=== PATIENT | male | born 1950 | race Caucasian/White ===

== ENCOUNTER 2018-07-29 15:40 | Inpatient (IN) | payer MEDICARE, MEDICAID ==
[~2018-07-29] VITALS: Ht 185.4 cm; Wt 113.9 kg
[~2018-07-29 15:40] MED LIST: DIGL; HYDR25TA PO; LIP40; MELO-106 PO; TAMS0.4C31 PO; WARF-53 PO
[2018-07-29 18:04] VITALS: BP 98/77
[2018-07-29] MEDS ORDERED: IPRATROPIUM/ALBUTEROL 0.5-3(2.5)MG/3ML NEB HHN PRN (19:00)
[2018-07-29 19:01] LABS: CLARITY URINE CLOUDY (CLEAR); COLOR URINE YELLOW (YELLOW); KETONES URINE NEGATIVE (NEGATIVE); LEUKOCYTE ESTERASE URINE 2+ (NEGATIVE); NITRITE URINE NEGATIVE (NEGATIVE); OCCULT BLOOD URINE 2+ (NEGATIVE); PH URINE 6.5 (4.5-8.0); PROTEIN URINE NEGATIVE (NEGATIVE); SPECIFIC GRAVITY URINE 1.017 (1.005-1.030)
[2018-07-29] MEDS: DIGOXIN 500MCG/2ML AMP IV SCH (19:30)
[2018-07-29 20:00] VITALS: BP 112/68
[2018-07-29] MEDS: IPRATROPIUM/ALBUTEROL 0.5-3(2.5)MG/3ML NEB HHN SCH (21:06)
[2018-07-29] MEDS ORDERED: AMIN30LI2 PO (22:15)
[2018-07-29] MEDS ORDERED: FINA5TAB11 PO (22:15)
[2018-07-29] MEDS ORDERED: ASCO100T12 PO (22:15)
[2018-07-29] MEDS ORDERED: HYDR25TA PO (22:15)
[2018-07-29] MEDS ORDERED: MULT-230 PO (22:15)
[2018-07-29] MEDS ORDERED: METO-539 PO (22:15)
[2018-07-29] MEDS ORDERED: LIDO700A30 TP (22:15)
[2018-07-29] MEDS ORDERED: ACET-2853 PO (22:15)
[2018-07-29] MEDS ORDERED: NA P230E RC (22:15)
[2018-07-29] MEDS ORDERED: MOM MT (22:15)
[2018-07-29] MEDS ORDERED: DOCU100T PO (22:15)
[2018-07-29] MEDS ORDERED: TRAM50TA3 PO (22:15)
[2018-07-29] MEDS ORDERED: ONDA4TAB5 PO (22:15)
[2018-07-29] MEDS ORDERED: BISA10SU8 RC (22:15)
[2018-07-29] MEDS ORDERED: ATOR40TA70 PO (22:15)
[2018-07-29] MEDS ORDERED: CYCL10TA7 PO (22:15)
[2018-07-29 22:40] LABS: PROTHROMBIN TIME 43.3 sec (9.1-11.1)
[2018-07-29 22:47] LABS: INR 4.4
[2018-07-29 22:52] LABS: CHLORIDE 100 mEq/L (98-107)
[2018-07-29 23:20] LABS: DIGOXIN < 0.1 ng/mL (0.9-2.0)
[2018-07-29] MEDS ORDERED: MEDICATION NOT ON FORMULARY EA (Finasteride 5 MG) PO SCH (23:45)
[2018-07-30] VITALS (9 sets, daily range): BP systolic 107–117; BP diastolic 68–74
[2018-07-30 00:13] LABS: BASOPHILS % 0.5 % (0.0-2.0); EOSINOPHILS % 2.2 % (0.0-5.0); HEMATOCRIT. 35.7 % (42.0-52.0); HEMOGLOBIN. 12.2 g/dL (14.0-18.0); MEAN CORPUSCULAR HEMOGLOBIN 29.7 pg (28.0-32.0); MEAN CORPUSCULAR VOLUME 86.7 fL (80.0-94.0); MONOCYTES % 7.7 % (2.0-8.0); NEUTROPHILS % 54.6 % (40.0-76.0); PLATELET 281 x1000/uL (130-400); RED BLOOD CELL COUNT 4.12 mill/uL (4.7-6.1)
[2018-07-30] MEDS: FINASTERIDE 5MG TABLET PO SCH ×2 (00:23→09:09)
[2018-07-30] MEDS: IPRATROPIUM/ALBUTEROL 0.5-3(2.5)MG/3ML NEB HHN SCH ×4 (01:28→21:03)
[2018-07-30] MEDS: CEFTRIAXONE 1 G PREMIX 50 ML IV SCH (01:35)
[2018-07-30] MEDS ORDERED: MEDICATION NOT ON FORMULARY EA (Metoprolol Tartrate 50 MG) PO SCH (09:00)
[2018-07-30] MEDS ORDERED: DILTIAZEM HCL 5MG/ML 5ML VIAL IV NR (09:00)
[2018-07-30] MEDS ORDERED: DIGOXIN 500MCG/2ML AMP IV SCH (09:00)
[2018-07-30] MEDS: METOPROLOL TARTRATE 50MG TABLET PO SCH ×2 (09:08→21:00)
[2018-07-30] MEDS: TAMSULOSIN HCL 0.4MG SR CAPSULE PO SCH (09:24)
[2018-07-30] MEDS ORDERED: MAGNESIUM/ALUMINUM HYDROXIDE/SIMETHICONE 30ML UDC PO PRN (11:00)
[2018-07-30] MEDS ORDERED: GUAIFENESIN 200MG/10ML SUGAR FREE UDC PO PRN (11:00)
[2018-07-30] MEDS ORDERED: ACETAMINOPHEN 650MG/20.3ML UDC GT PRN (11:00)
[2018-07-30] MEDS ORDERED: CLONIDINE 0.1MG TABLET PO PRN (11:00)
[2018-07-30] MEDS ORDERED: ONDANSETRON HCL 4MG/2ML INJ IV PRN (11:00)
[2018-07-30] MEDS ORDERED: IPRATROPIUM/ALBUTEROL 0.5-3(2.5)MG/3ML NEB INH PRN (11:00)
[2018-07-30] MEDS ORDERED: DIPHENHYDRAMINE 50MG/ML VIAL IV PRN (11:00)
[2018-07-30] MEDS ORDERED: ACETAMINOPHEN 650MG SUPP PR PRN (11:00)
[2018-07-30] MEDS ORDERED: SODIUM CHLORIDE 0.9% 1000ML BAG (SEPSIS BOLUS) IV ONE (11:00)
[2018-07-30] MEDS ORDERED: SODIUM CHLORIDE 0.9% 500 ML IV ONE (11:02)
[2018-07-30 11:30] LABS: INR 3.4; PROTHROMBIN TIME 33.5 sec (9.1-11.1)
[2018-07-30] MEDS: SODIUM CHLORIDE 0.9% INJ 3ML FLUSH IVF SCH ×2 (13:54→21:24)
[2018-07-30] MEDS ORDERED: GADOBENATE DIMEGLUMINE 529 MG/ML 10ML IV ONE (14:25)
[2018-07-30] MEDS ORDERED: PHYTONADIONE 10 MG/10 ML ORALSYR PO ONE (14:30)
[2018-07-30] MEDS ORDERED: DEXTROSE 50% WATER 50ML SYRINGE IV PRN (15:00)
[2018-07-30] MEDS ORDERED: PHYTONADIONE 10MG/ML AMP SUBCUT ONE (15:15)
[2018-07-30 16:38] LABS: BASOPHILS % 0.5 % (0.0-2.0); EOSINOPHILS % 1.8 % (0.0-5.0); HEMATOCRIT. 37.1 % (42.0-52.0); HEMOGLOBIN. 12.7 g/dL (14.0-18.0); LYMPHOCYTES % 29.2 % (20.0-50.0); MEAN CORPUSCULAR HEMOGLOBIN 30.1 pg (28.0-32.0); MEAN CORPUSCULAR VOLUME 87.8 fL (80.0-94.0); MONOCYTES % 8.5 % (2.0-8.0); PLATELET 276 x1000/uL (130-400); RED BLOOD CELL COUNT 4.23 mill/uL (4.7-6.1); RED CELL DISTRIBUTION WIDTH 14.1 % (11.6-14.6)
[2018-07-30 16:49] LABS: CHLORIDE 100 mEq/L (98-107)
[2018-07-30 16:59] LABS: CREATINE KINASE 151 IU/L (39-308)
[2018-07-30 17:01] LABS: CREATINE KINASE MB FRACTION 1.3 ng/mL (0.5-3.6)
[2018-07-30] MEDS: PHYTONADIONE 10MG/ML AMP SUBCUT SCH (17:12)
[2018-07-30] MEDS ORDERED: ENOXAPARIN 40MG/0.4ML SYR SUBCUT SCH (17:15)
[2018-07-30] MEDS: BLOOD SUGAR DIAGNOSTIC STRIP TEST SCH ×2 (17:20→21:24)
[2018-07-30] MEDS: INSULIN LISPRO 100 UNITS/ML SUBCUT SCH ×2 (17:50→21:00)
[2018-07-30] MEDS: DIGOXIN 500MCG/2ML AMP IV SCH (18:00)
[2018-07-30] MEDS ORDERED: VANCOMYCIN 1 G PREMIX 200 ML IV NR (18:00)
[2018-07-30] MEDS: PIPERACILLIN/TAZ 3.375G PREMIX 50 ML IV SCH (18:07)
[2018-07-30 18:39] LABS: CLARITY URINE TURBID (CLEAR); COLOR URINE DARK YELLOW (YELLOW); KETONES URINE TRACE (NEGATIVE); LEUKOCYTE ESTERASE URINE 1+ (NEGATIVE); NITRITE URINE NEGATIVE (NEGATIVE); OCCULT BLOOD URINE 3+ (NEGATIVE); PROTEIN URINE 1+ (NEGATIVE)
[2018-07-30 19:08] LABS: *AMPHETAMINES SCREEN URINE NEGATIVE (NEGATIVE); *BARBITURATES SCREEN URINE NEGATIVE (NEGATIVE); *BENZODIAZEPINES SCREEN URINE NEGATIVE (NEGATIVE); *COCAINE SCREEN URINE NEGATIVE (NEGATIVE); OPIATES URINE SCREEN NEGATIVE (NEGATIVE); PHENCYCLIDINE URINE SCREEN NEGATIVE (NEGATIVE)
[2018-07-30 19:09] LABS: CANNABINOID URINE SCREEN PRESUMTIVE POSITIVE (NEGATIVE)
[2018-07-30 19:15] LABS: METHADONE URINE SCREEN NEGATIVE (NEGATIVE)
[2018-07-30] MEDS: DOCUSATE SODIUM 100MG CAPSULE PO PRN (21:24)
[2018-07-31] VITALS (41 sets, daily range): BP systolic 93–150; BP diastolic 41–94
[2018-07-31] MEDS: IPRATROPIUM/ALBUTEROL 0.5-3(2.5)MG/3ML NEB HHN SCH ×2 (01:11→20:30)
[2018-07-31] MEDS: PIPERACILLIN/TAZ 3.375G PREMIX 50 ML IV SCH ×5 (01:12→23:20)
[2018-07-31 01:32] LABS: CREATINE KINASE 54 IU/L (39-308)
[2018-07-31 01:34] LABS: CREATINE KINASE MB FRACTION < 1.0 ng/mL (0.5-3.6)
[2018-07-31] MEDS: CEFTRIAXONE 1 G PREMIX 50 ML IV SCH (02:25)
[2018-07-31 03:12] LABS: INR 1.7; PROTHROMBIN TIME 17.3 sec (9.1-11.1)
[2018-07-31] MEDS: SODIUM CHLORIDE 0.9% INJ 3ML FLUSH IVF SCH (05:38)
[2018-07-31 07:19] LABS: BASOPHILS % 0.8 % (0.0-2.0); EOSINOPHILS % 2.9 % (0.0-5.0); HEMATOCRIT. 33.2 % (42.0-52.0); HEMOGLOBIN. 11.4 g/dL (14.0-18.0); LYMPHOCYTES % 32.8 % (20.0-50.0); MEAN CORPUSCULAR VOLUME 87.4 fL (80.0-94.0); MEAN PLATELET VOLUME 6.6 fl (7.4-10.4); MONOCYTES % 8.8 % (2.0-8.0); NEUTROPHILS % 54.7 % (40.0-76.0); PLATELET 263 x1000/uL (130-400); RED BLOOD CELL COUNT 3.79 mill/uL (4.7-6.1); RED CELL DISTRIBUTION WIDTH 14.3 % (11.6-14.6)
[2018-07-31 07:28] LABS: CHLORIDE 102 mEq/L (98-107)
[2018-07-31 07:33] LABS: INR 1.4; PARTIAL THROMBOPLASTIN TIME 34.6 sec (23.4-31.0); PROTHROMBIN TIME 14.1 sec (9.1-11.1)
[2018-07-31 07:35] LABS: LDL CHOLESTEROL 65 mg/dL (5-100)
[2018-07-31 07:36] LABS: HDL CHOLESTEROL 40 mg/dL (40-59)
[2018-07-31] MEDS: TAMSULOSIN HCL 0.4MG SR CAPSULE PO SCH (07:42)
[2018-07-31] MEDS: METOPROLOL TARTRATE 50MG TABLET PO SCH ×2 (07:42→21:06)
[2018-07-31] MEDS: FINASTERIDE 5MG TABLET PO SCH (07:43)
[2018-07-31] MEDS: INSULIN LISPRO 100 UNITS/ML SUBCUT SCH ×4 (07:45→21:00)
[2018-07-31] MEDS: BLOOD SUGAR DIAGNOSTIC STRIP TEST SCH ×4 (07:45→21:06)
[2018-07-31] MEDS: PHYTONADIONE 10MG/ML AMP SUBCUT SCH (08:34)
[2018-07-31] MEDS ORDERED: GELATIN SPONGE,ABSORBABLE 12-7MM SPONGE ONE (08:50)
[2018-07-31] MEDS ORDERED: LIDOCAINE HCL/EPINEPHRINE 1%-EPI 1:100,000 20 ML VIAL ONE (08:51)
[2018-07-31] MEDS ORDERED: NORMAL SALINE 0.9% 10 ML SYR ONE (08:51)
[2018-07-31] MEDS ORDERED: BACITRACIN 50,000 UNITS/VIAL ONE (08:51)
[2018-07-31] MEDS ORDERED: THROMBIN (BOVINE) 5000 UNITS/VIAL TOP ONE (08:51)
[2018-07-31] MEDS ORDERED: FENTANYL CITRATE/PF 50MCG/ML 2ML VIAL ONE (08:57)
[2018-07-31] MEDS ORDERED: ROCURONIUM BROMIDE 10MG/ML VIAL 5ML IV ONE (08:57)
[2018-07-31] MEDS ORDERED: MIDAZOLAM HCL 2 MG/2 ML VIAL ONE (08:58)
[2018-07-31] MEDS ORDERED: ONDANSETRON HCL 4MG/2ML INJ ONE (09:04)
[2018-07-31] MEDS ORDERED: ETOMIDATE 2MG/ML 10ML VIAL IV ONE (09:04)
[2018-07-31] MEDS ORDERED: CEFAZOLIN SODIUM 1000MG/VIAL ONE (09:37)
[2018-07-31] MEDS ORDERED: SODIUM CHLORIDE 0.9% 10ML VIAL ONE (09:37)
[2018-07-31] MEDS ORDERED: TRANEXAMIC ACID 1,000 MG in SODIUM CHLORIDE 0.9% 100 ML IV NR (09:45)
[2018-07-31] MEDS ORDERED: NEOSTIGMINE METHYLSULFATE 1MG/ML 10 ML VIAL ONE (10:40)
[2018-07-31] MEDS ORDERED: GLYCOPYRROLATE 0.2 MG/ML 2ML VIAL ONE (10:51)
[2018-07-31] MEDS ORDERED: HYDROMORPHONE HCL/PF 2MG/ML (OR) ONE (11:05)
[2018-07-31] MEDS ORDERED: MORPHINE SULFATE 4 MG/ML CPJ (NOT FOR IM USE) IV PRN (12:00)
[2018-07-31] MEDS ORDERED: HYDROCODONE/APAP 7.5/325MG 1 TAB TABLET PO PRN (12:00)
[2018-07-31] MEDS ORDERED: NICARDIPINE 100 MG in SODIUM CHLORIDE 0.9% 60 ML IV PRN (12:00)
[2018-07-31] MEDS: DEXT 5%/LACTATED RINGERS 1,000 ML IV SCH ×2 (12:38→17:29)
[2018-07-31] MEDS ORDERED: NITROPRUSSIDE 50 MG in SODIUM CHLORIDE 0.9% 250 ML IV PRN (12:45)
[2018-07-31] MEDS ORDERED: VANCOMYCIN 2,000 MG in SODIUM CHLORIDE 0.9% 500 ML IV NR (14:00)
[2018-07-31 15:52] LABS: INR 1.2; PROTHROMBIN TIME 12.3 sec (9.1-11.1)
[2018-07-31 16:36] LABS: HEPATITIS B SURFACE ANTIGEN NEGATIVE
[2018-07-31 17:06] LABS: HEPATITIS A AB IGM NEGATIVE (NEGATIVE)
[2018-07-31] MEDS: DIGOXIN 500MCG/2ML AMP IV SCH (17:28)
[2018-07-31] MEDS: ACETAMINOPHEN 325MG TABLET PO PRN (23:20)
[2018-08-01] VITALS (64 sets, daily range): BP systolic 18–151; BP diastolic 18–110
[2018-08-01] MEDS: DEXT 5%/LACTATED RINGERS 1,000 ML IV SCH ×3 (01:20→16:27)
[2018-08-01] MEDS: IPRATROPIUM/ALBUTEROL 0.5-3(2.5)MG/3ML NEB HHN SCH ×4 (02:19→20:30)
[2018-08-01] MEDS: ACETAMINOPHEN 325MG TABLET PO PRN ×2 (05:02→13:18)
[2018-08-01] MEDS: INSULIN LISPRO 100 UNITS/ML SUBCUT SCH ×4 (06:10→20:34)
[2018-08-01] MEDS: BLOOD SUGAR DIAGNOSTIC STRIP TEST SCH ×4 (06:10→20:34)
[2018-08-01] MEDS: PIPERACILLIN/TAZ 3.375G PREMIX 50 ML IV SCH ×3 (06:10→17:47)
[2018-08-01] MEDS: VANCOMYCIN 1,750 MG in DEXT 5% WATER 500 ML IV SCH (07:30)
[2018-08-01] MEDS ORDERED: VANCOMYCIN 1500MG in DEXTROSE 5% WATER 250ML IV SCH (08:00)
[2018-08-01] MEDS: PHYTONADIONE 10MG/ML AMP SUBCUT SCH (08:58)
[2018-08-01] MEDS: TAMSULOSIN HCL 0.4MG SR CAPSULE PO SCH (08:58)
[2018-08-01] MEDS: FINASTERIDE 5MG TABLET PO SCH (08:59)
[2018-08-01] MEDS: METOPROLOL TARTRATE 50MG TABLET PO SCH ×2 (08:59→20:31)
[2018-08-01 10:49] LABS: INR 1.2
[2018-08-01 10:55] LABS: BASOPHILS % 0.4 % (0.0-2.0); HEMATOCRIT. 31.2 % (42.0-52.0); HEMOGLOBIN. 10.6 g/dL (14.0-18.0); LYMPHOCYTES % 27.3 % (20.0-50.0); MEAN CORPUSCULAR HEMOGLOBIN 30.1 pg (28.0-32.0); MEAN CORPUSCULAR VOLUME 88.8 fL (80.0-94.0); MEAN PLATELET VOLUME 6.8 fl (7.4-10.4); MONOCYTES % 7.7 % (2.0-8.0); NEUTROPHILS % 61.6 % (40.0-76.0); PLATELET 242 x1000/uL (130-400); RED BLOOD CELL COUNT 3.52 mill/uL (4.7-6.1); RED CELL DISTRIBUTION WIDTH 13.8 % (11.6-14.6)
[2018-08-01 11:03] LABS: CHLORIDE 103 mEq/L (98-107)
[2018-08-01] MEDS: DOCUSATE SODIUM 100MG CAPSULE PO PRN (13:57)
[2018-08-01] MEDS: DIGOXIN 500MCG/2ML AMP IV SCH (17:48)
[2018-08-01] MEDS ORDERED: BISACODYL 10MG SUPP PR PRN (22:15)
[2018-08-02] VITALS: BP 121/73
[2018-08-02] MEDS: PIPERACILLIN/TAZ 3.375G PREMIX 50 ML IV SCH ×3 (00:05→12:46)
[2018-08-02] MEDS: IPRATROPIUM/ALBUTEROL 0.5-3(2.5)MG/3ML NEB HHN SCH ×3 (01:58→21:35)
[2018-08-02] MEDS: VANCOMYCIN 1,750 MG in DEXT 5% WATER 500 ML IV SCH (02:08)
[2018-08-02] MEDS: DEXT 5%/LACTATED RINGERS 1,000 ML IV SCH ×3 (02:12→22:55)
[2018-08-02 04:00] VITALS: BP 132/74
[2018-08-02] MEDS: BLOOD SUGAR DIAGNOSTIC STRIP TEST SCH ×4 (06:24→20:32)
[2018-08-02] MEDS: BISACODYL 5MG TABLET PO PRN (06:42)
[2018-08-02] MEDS: INSULIN LISPRO 100 UNITS/ML SUBCUT SCH ×4 (07:50→20:32)
[2018-08-02 08:00] VITALS: BP 134/78
[2018-08-02 08:18] LABS: HIV SCREEN 4G Non Reactive (Non Reactive)
[2018-08-02] MEDS: NA PHOS,M-B/NA PHOS,DI-BA ENEMA 118ML PR PRN ×2 (08:38→10:19)
[2018-08-02] MEDS: TAMSULOSIN HCL 0.4MG SR CAPSULE PO SCH (08:39)
[2018-08-02] MEDS: METOPROLOL TARTRATE 50MG TABLET PO SCH ×2 (08:39→20:28)
[2018-08-02] MEDS: FINASTERIDE 5MG TABLET PO SCH (08:39)
[2018-08-02] MEDS ORDERED: LIDOCAINE HCL 1% 20ML VIAL (Pyxis) INJ ONE (09:03)
[2018-08-02 12:02] VITALS: BP 142/76
[2018-08-02] MEDS ORDERED: LACTULOSE 20G/30ML UDC PO NR ×2 (15:00→21:39)
[2018-08-02] MEDS: ACETAMINOPHEN 325MG TABLET PO PRN (15:52)
[2018-08-02 16:00] VITALS: BP 109/75
[2018-08-02] MEDS: VANCOMYCIN 1500MG in DEXTROSE 5% WATER 250ML IV SCH (17:51)
[2018-08-02] MEDS: LEVOFLOXACIN 250MG TABLET PO SCH (17:52)
[2018-08-02] MEDS: DIGOXIN 500MCG/2ML AMP IV SCH (17:55)
[2018-08-02 20:00] VITALS: BP 115/80
[2018-08-02] MEDS: METRONIDAZOLE 500MG TABLET PO SCH (22:56)
[2018-08-03] VITALS: BP 106/58
[2018-08-03] MEDS: IPRATROPIUM/ALBUTEROL 0.5-3(2.5)MG/3ML NEB HHN SCH ×4 (02:52→22:00)
[2018-08-03 04:00] VITALS: BP 125/69
[2018-08-03] MEDS: VANCOMYCIN 1500MG in DEXTROSE 5% WATER 250ML IV SCH ×2 (04:40→16:57)
[2018-08-03] MEDS: METRONIDAZOLE 500MG TABLET PO SCH ×3 (06:39→21:34)
[2018-08-03] MEDS: BLOOD SUGAR DIAGNOSTIC STRIP TEST SCH ×4 (06:46→21:35)
[2018-08-03] MEDS: INSULIN LISPRO 100 UNITS/ML SUBCUT SCH ×4 (07:50→21:00)
[2018-08-03 08:00] VITALS: BP 120/74
[2018-08-03] MEDS: METOPROLOL TARTRATE 50MG TABLET PO SCH ×2 (08:50→21:34)
[2018-08-03] MEDS: DEXT 5%/LACTATED RINGERS 1,000 ML IV SCH ×2 (08:50→18:32)
[2018-08-03] MEDS: FINASTERIDE 5MG TABLET PO SCH (08:51)
[2018-08-03] MEDS: TAMSULOSIN HCL 0.4MG SR CAPSULE PO SCH (08:51)
[2018-08-03] MEDS: LEVOFLOXACIN 250MG TABLET PO SCH (11:05)
[2018-08-03 12:00] VITALS: BP 107/79
[2018-08-03] MEDS ORDERED: NA PHOS,M-B/NA PHOS,DI-BA ENEMA 118ML PR NR (12:30)
[2018-08-03 16:00] VITALS: BP 127/73
[2018-08-03] MEDS: DIGOXIN 500MCG/2ML AMP IV SCH (18:33)
[2018-08-03 20:00] VITALS: BP 115/82
[2018-08-03] MEDS: ACETAMINOPHEN 325MG TABLET PO PRN (21:34)
[2018-08-04] VITALS: BP 108/72
[2018-08-04] MEDS: IPRATROPIUM/ALBUTEROL 0.5-3(2.5)MG/3ML NEB HHN SCH ×3 (01:32→13:26)
[2018-08-04 04:00] VITALS: BP 132/99
[2018-08-04] MEDS: NA PHOS,M-B/NA PHOS,DI-BA ENEMA 118ML PR PRN (07:04)
[2018-08-04] MEDS: DEXT 5%/LACTATED RINGERS 1,000 ML IV SCH ×2 (07:05→13:40)
[2018-08-04] MEDS: BLOOD SUGAR DIAGNOSTIC STRIP TEST SCH ×2 (07:20→12:57)
[2018-08-04] MEDS: INSULIN LISPRO 100 UNITS/ML SUBCUT SCH ×2 (07:50→12:50)
[2018-08-04 08:00] VITALS: BP 132/81
[2018-08-04] MEDS: TAMSULOSIN HCL 0.4MG SR CAPSULE PO SCH (09:37)
[2018-08-04] MEDS: METOPROLOL TARTRATE 50MG TABLET PO SCH (09:38)
[2018-08-04] MEDS: BISACODYL 5MG TABLET PO PRN (09:38)
[2018-08-04] MEDS: FINASTERIDE 5MG TABLET PO SCH (09:38)
[2018-08-04] MEDS: LEVOFLOXACIN 250MG TABLET PO SCH (11:29)
[2018-08-04 12:00] VITALS: BP 116/69
[2018-08-04] MEDS: METRONIDAZOLE 500MG TABLET PO SCH (13:40)
[2018-08-04 14:42] VITALS: BP 132/81
[2018-08-04] MEDS ORDERED: VANCOMYCIN 1250MG in DEXTROSE 5% WATER 250ML IV SCH (16:00)
== END 2018-08-04 15:46 | DRG 29 ==
LOC: ER 15:40 → 6WST 15:45 → MICUSO 07-31 10:09 → 6EST 08-01 18:55
PROVIDERS: ADMIT Family Medicine; ATTEND Family Medicine
PROC: 30233K1 Transfusion of Nonautologous Frozen Plasma into Peripheral Vein, Percutaneous Approach (ICD-10-PCS; 2018-07-30)
PROC: 009U0ZZ Drainage of Spinal Canal, Open Approach (ICD-10-PCS; principal; 2018-07-31)
PROC: 4A11X4G Monitoring of Peripheral Nervous Electrical Activity, Intraoperative, External Approach (ICD-10-PCS; 2018-07-31)
PROC: 01NB0ZZ Release Lumbar Nerve, Open Approach (ICD-10-PCS; 2018-07-31)
PROC: 02HV33Z Insertion of Infusion Device into Superior Vena Cava, Percutaneous Approach (ICD-10-PCS; 2018-08-02)
PROC: B548ZZA Ultrasonography of Superior Vena Cava, Guidance (ICD-10-PCS; 2018-08-02)
PROC: B5181ZA Fluoroscopy of Superior Vena Cava using Low Osmolar Contrast, Guidance (ICD-10-PCS; 2018-08-02)
DX: G06.2 Extradural and subdural abscess, unspecified (principal); S32.059A Unspecified fracture of fifth lumbar vertebra, initial encounter for closed fracture; N39.0 Urinary tract infection, site not specified; D68.59 Other primary thrombophilia; M46.27 Osteomyelitis of vertebra, lumbosacral region; G82.20 Paraplegia, unspecified; L03.116 Cellulitis of left lower limb; L03.115 Cellulitis of right lower limb; E44.0 Moderate protein-calorie malnutrition; E11.51 Type 2 diabetes mellitus with diabetic peripheral angiopathy without gangrene; E11.65 Type 2 diabetes mellitus with hyperglycemia; I48.2 Chronic atrial fibrillation; E78.5 Hyperlipidemia, unspecified; I87.2 Venous insufficiency (chronic) (peripheral); M48.061 Spinal stenosis, lumbar region without neurogenic claudication; M46.49 Discitis, unspecified, multiple sites in spine; E66.9 Obesity, unspecified; R32 Unspecified urinary incontinence; D64.9 Anemia, unspecified; E11.621 Type 2 diabetes mellitus with foot ulcer; E11.69 Type 2 diabetes mellitus with other specified complication; Z96.642 Presence of left artificial hip joint; L97.519 Non-pressure chronic ulcer of other part of right foot with unspecified severity; M19.90 Unspecified osteoarthritis, unspecified site; M48.04 Spinal stenosis, thoracic region; N40.0 Benign prostatic hyperplasia without lower urinary tract symptoms; R26.2 Difficulty in walking, not elsewhere classified; L57.0 Actinic keratosis; M47.26 Other spondylosis with radiculopathy, lumbar region; X58.XXXA Exposure to other specified factors, initial encounter; Y93.89 Activity, other specified; Z79.01 Long term (current) use of anticoagulants; Z88.2 Allergy status to sulfonamides; Z90.49 Acquired absence of other specified parts of digestive tract; Y92.89 Other specified places as the place of occurrence of the external cause; Y99.8 Other external cause status
CPT/HCPCS: 36415; 36569; 71045; 72100; 72141; 72146; 72148; 72158; 76937; 77001; 80048; 80061; 80162; 80202; 80305; 82550; 82553; 82962; 83605; 84145; 84153; 84484; 86705; 86709; 86803; 86850; 86900; 86927; 87070; 87075; 87340; 87389; 88304; 88311; 93005; 93306; 93923; 93970; 94640; 95863; 95925; 95926; 97110; 97116; 97162; 97166; 97530; 97535; 99285; A9577; C1725; J0690; J0696; J1160; J1170; J2250; J2405; J2543; J2710; J3010; J3370; J3430; J3490; J7040; J7050; J7060; J7121; J7620; L3908; P9017; A4315; G0103

== ENCOUNTER 2018-08-04 15:59 | Inpatient (IN) | payer MEDICARE, MEDICAID ==
[~2018-08-04] VITALS: Ht 185.4 cm; Wt 104.3 kg
[~2018-08-04 15:59] MED LIST changes: +ACET-2853 PO; +AMIN30LI2 PO; +ASCO100T12 PO; +ATOR40TA70 PO; +BISA10SU8 RC; +CYCL10TA7 PO; -DIGL; +DOCU100T PO; +FINA5TAB11 PO; +LIDO700A30 TP; +METO-539 PO; +MOM MT; +MULT-230 PO; +NA P230E RC; +ONDA4TAB5 PO; +TRAM50TA3 PO
[2018-08-04 16:39] VITALS: BP 125/80
[2018-08-04 16:54] VITALS: BP 125/80
[2018-08-04] MEDS ORDERED: IPRATROPIUM/ALBUTEROL 0.5-3(2.5)MG/3ML NEB HHN PRN (17:45)
[2018-08-04] MEDS ORDERED: MEDICATION NOT ON FORMULARY EA (Finasteride 5 MG) PO SCH (19:00)
[2018-08-04 20:00] VITALS: BP 115/69
[2018-08-04] MEDS ORDERED: FINASTERIDE 5MG TABLET PO SCH (20:00)
[2018-08-04] MEDS: VANCOMYCIN 1250MG in DEXTROSE 5% WATER 250ML IV SCH (20:37)
[2018-08-04] MEDS: ATORVASTATIN CALCIUM 40MG TABLET PO SCH (20:37)
[2018-08-04] MEDS ORDERED: BISACODYL 10MG SUPP PR PRN (21:30)
[2018-08-04] MEDS ORDERED: ACETAMINOPHEN 325MG TABLET PO PRN (21:30)
[2018-08-04] MEDS ORDERED: NA PHOS,M-B/NA PHOS,DI-BA ENEMA 118ML PR PRN (21:30)
[2018-08-04] MEDS ORDERED: HYDROCODONE/ACETAMINOPHEN 5/325MG TABLET PO PRN (21:30)
[2018-08-04] MEDS ORDERED: BISACODYL 5MG TABLET PO PRN (21:30)
[2018-08-04] MEDS: METRONIDAZOLE 500MG TABLET PO SCH (21:40)
[2018-08-04] MEDS ORDERED: METRONIDAZOLE 500MG TABLET PO SCH (22:00)
[2018-08-04] MEDS ORDERED: MAGNESIUM CITRATE 300ML SOLUTION PO NR (23:00)
[2018-08-05] MEDS: METRONIDAZOLE 500MG TABLET PO SCH ×3 (05:38→21:23)
[2018-08-05 06:18] LABS: BASOPHILS % 0.5 % (0.0-2.0); HEMATOCRIT. 30.5 % (42.0-52.0); HEMOGLOBIN. 10.4 g/dL (14.0-18.0); LYMPHOCYTES % 26.9 % (20.0-50.0); MEAN CORPUSCULAR HEMOGLOBIN 29.9 pg (28.0-32.0); MEAN CORPUSCULAR VOLUME 87.8 fL (80.0-94.0); MEAN PLATELET VOLUME 6.6 fl (7.4-10.4); MONOCYTES % 8.8 % (2.0-8.0); NEUTROPHILS % 59.8 % (40.0-76.0); PLATELET 309 x1000/uL (130-400); RED BLOOD CELL COUNT 3.47 mill/uL (4.7-6.1); RED CELL DISTRIBUTION WIDTH 14.4 % (11.6-14.6)
[2018-08-05 06:48] LABS: CHLORIDE 103 mEq/L (98-107)
[2018-08-05 08:27] VITALS: BP 122/59
[2018-08-05] MEDS: TAMSULOSIN HCL 0.4MG SR CAPSULE PO SCH (08:29)
[2018-08-05] MEDS: FINASTERIDE 5MG TABLET PO SCH (08:29)
[2018-08-05] MEDS: VANCOMYCIN 1250MG in DEXTROSE 5% WATER 250ML IV SCH ×2 (08:29→21:23)
[2018-08-05] MEDS ORDERED: TAMSULOSIN HCL 0.4MG SR CAPSULE PO SCH (09:00)
[2018-08-05] MEDS: LEVOFLOXACIN 250MG TABLET PO SCH (11:17)
[2018-08-05] MEDS ORDERED: LACTULOSE 20G/30ML UDC PO NR (16:00)
[2018-08-05] MEDS: SODIUM CHLORIDE 0.9% 1,000 ML IV SCH (16:09)
[2018-08-05] MEDS ORDERED: HYDROCODONE/ACETAMINOPHEN 5/325MG TABLET PO PRN (16:15)
[2018-08-05] MEDS: DOCUSATE SODIUM 100MG CAPSULE PO SCH (17:21)
[2018-08-05 20:00] VITALS: BP 121/85
[2018-08-05] MEDS: ATORVASTATIN CALCIUM 40MG TABLET PO SCH (21:23)
[2018-08-06] MEDS: SODIUM CHLORIDE 0.9% 1,000 ML IV SCH ×2 (05:28→20:26)
[2018-08-06] MEDS: METRONIDAZOLE 500MG TABLET PO SCH ×3 (05:28→21:46)
[2018-08-06] MEDS ORDERED: SIMETHICONE 80MG TABLET CHEW PO PRN (07:15)
[2018-08-06 08:16] VITALS: BP 135/84
[2018-08-06] MEDS: DOCUSATE SODIUM 100MG CAPSULE PO SCH ×2 (09:00→17:00)
[2018-08-06] MEDS: VANCOMYCIN 1250MG in DEXTROSE 5% WATER 250ML IV SCH ×2 (09:42→20:25)
[2018-08-06] MEDS: TAMSULOSIN HCL 0.4MG SR CAPSULE PO SCH (09:44)
[2018-08-06] MEDS: FINASTERIDE 5MG TABLET PO SCH (09:44)
[2018-08-06] MEDS: LEVOFLOXACIN 250MG TABLET PO SCH (12:37)
[2018-08-06 20:00] VITALS: BP 115/78
[2018-08-06] MEDS: ATORVASTATIN CALCIUM 40MG TABLET PO SCH (21:46)
[2018-08-07] MEDS: METRONIDAZOLE 500MG TABLET PO SCH ×2 (05:41→17:41)
[2018-08-07] MEDS: VANCOMYCIN 1250MG in DEXTROSE 5% WATER 250ML IV SCH (08:00)
[2018-08-07 08:26] VITALS: BP 140/90
[2018-08-07] MEDS: DOCUSATE SODIUM 100MG CAPSULE PO SCH ×2 (09:00→17:00)
[2018-08-07] MEDS: SODIUM CHLORIDE 0.9% 1,000 ML IV SCH ×3 (09:31→20:14)
[2018-08-07] MEDS: TAMSULOSIN HCL 0.4MG SR CAPSULE PO SCH (09:35)
[2018-08-07] MEDS: FINASTERIDE 5MG TABLET PO SCH (09:35)
[2018-08-07 13:35] LABS: CLARITY URINE TURBID (CLEAR); COLOR URINE YELLOW (YELLOW); KETONES URINE NEGATIVE (NEGATIVE); LEUKOCYTE ESTERASE URINE 2+ (NEGATIVE); NITRITE URINE NEGATIVE (NEGATIVE); OCCULT BLOOD URINE TRACE (NEGATIVE); PROTEIN URINE TRACE (NEGATIVE); SPECIFIC GRAVITY URINE 1.004 (1.005-1.030); UROBILINOGEN URINE 0.2 E.U./dL (0.2-1.0)
[2018-08-07 15:08] LABS: BASOPHILS % 0.3 % (0.0-2.0); EOSINOPHILS % 3.2 % (0.0-5.0); HEMATOCRIT. 29.1 % (42.0-52.0); HEMOGLOBIN. 9.9 g/dL (14.0-18.0); LYMPHOCYTES % 19.1 % (20.0-50.0); MEAN CORPUSCULAR HEMOGLOBIN 30.1 pg (28.0-32.0); MEAN CORPUSCULAR VOLUME 88.1 fL (80.0-94.0); MEAN PLATELET VOLUME 6.3 fl (7.4-10.4); MONOCYTES % 6.5 % (2.0-8.0); NEUTROPHILS % 70.9 % (40.0-76.0); PLATELET 292 x1000/uL (130-400); RED CELL DISTRIBUTION WIDTH 14.6 % (11.6-14.6)
[2018-08-07 15:16] LABS: INR 1.1; PROTHROMBIN TIME 11.4 sec (9.1-11.1)
[2018-08-07 18:25] LABS: BASOPHILS % 0.4 % (0.0-2.0); EOSINOPHILS % 2.6 % (0.0-5.0); HEMATOCRIT. 30.2 % (42.0-52.0); MEAN CORPUSCULAR HEMOGLOBIN 29.3 pg (28.0-32.0); MEAN CORPUSCULAR VOLUME 88.2 fL (80.0-94.0); MEAN PLATELET VOLUME 6.6 fl (7.4-10.4); MONOCYTES % 7.5 % (2.0-8.0); NEUTROPHILS % 69.5 % (40.0-76.0); PLATELET 306 x1000/uL (130-400); RED BLOOD CELL COUNT 3.42 mill/uL (4.7-6.1); RED CELL DISTRIBUTION WIDTH 14.3 % (11.6-14.6)
[2018-08-07 18:32] LABS: PHOSPHORUS 3.6 mg/dL (2.5-4.9)
[2018-08-07 20:00] VITALS: BP 133/93
[2018-08-07] MEDS: ATORVASTATIN CALCIUM 40MG TABLET PO SCH (21:43)
[2018-08-08] MEDS: SODIUM CHLORIDE 0.9% 1,000 ML IV SCH (05:08)
[2018-08-08] MEDS: METRONIDAZOLE 500MG TABLET PO SCH (05:13)
[2018-08-08 07:14] LABS: BASOPHILS % 0.3 % (0.0-2.0); EOSINOPHILS % 2.8 % (0.0-5.0); HEMATOCRIT. 28.9 % (42.0-52.0); HEMOGLOBIN. 9.8 g/dL (14.0-18.0); LYMPHOCYTES % 20.6 % (20.0-50.0); MEAN CORPUSCULAR HEMOGLOBIN 29.7 pg (28.0-32.0); MEAN CORPUSCULAR VOLUME 87.6 fL (80.0-94.0); MEAN PLATELET VOLUME 6.5 fl (7.4-10.4); MONOCYTES % 7.7 % (2.0-8.0); NEUTROPHILS % 68.6 % (40.0-76.0); PLATELET 312 x1000/uL (130-400); RED CELL DISTRIBUTION WIDTH 14.5 % (11.6-14.6)
[2018-08-08 07:51] LABS: CHLORIDE 100 mEq/L (98-107)
[2018-08-08 08:00] VITALS: BP 138/87
[2018-08-08] MEDS: TAMSULOSIN HCL 0.4MG SR CAPSULE PO SCH (08:52)
[2018-08-08] MEDS: DOCUSATE SODIUM 100MG CAPSULE PO SCH (08:52)
[2018-08-08] MEDS: FINASTERIDE 5MG TABLET PO SCH (08:52)
[2018-08-08 09:21] VITALS: BP 138/87
[2018-08-08] MEDS ORDERED: LEVOFLOXACIN 500MG TABLET PO SCH (11:00)
[2018-08-08] MEDS ORDERED: LEVOFLOXACIN 250MG TABLET PO SCH (11:00)
== END 2018-08-08 10:29 | disposition short-term general hospital (02) | DRG 95 ==
PROVIDERS: ADMIT Psychiatry & Neurology Neurology; ATTEND Family Medicine
DX: G06.1 Intraspinal abscess and granuloma (principal); L03.115 Cellulitis of right lower limb; N17.9 Acute kidney failure, unspecified; D68.59 Other primary thrombophilia; N39.0 Urinary tract infection, site not specified; M46.27 Osteomyelitis of vertebra, lumbosacral region; L03.116 Cellulitis of left lower limb; I48.2 Chronic atrial fibrillation; E11.65 Type 2 diabetes mellitus with hyperglycemia; I87.2 Venous insufficiency (chronic) (peripheral); R32 Unspecified urinary incontinence; R15.9 Full incontinence of feces; E78.5 Hyperlipidemia, unspecified; R53.1 Weakness; E11.51 Type 2 diabetes mellitus with diabetic peripheral angiopathy without gangrene; N40.1 Benign prostatic hyperplasia with lower urinary tract symptoms; R33.8 Other retention of urine; E11.69 Type 2 diabetes mellitus with other specified complication; Z96.642 Presence of left artificial hip joint; E66.9 Obesity, unspecified; M19.90 Unspecified osteoarthritis, unspecified site; M46.47 Discitis, unspecified, lumbosacral region; I10 Essential (primary) hypertension; M48.061 Spinal stenosis, lumbar region without neurogenic claudication; M48.05 Spinal stenosis, thoracolumbar region; E11.621 Type 2 diabetes mellitus with foot ulcer; L97.519 Non-pressure chronic ulcer of other part of right foot with unspecified severity; Z79.01 Long term (current) use of anticoagulants; Z90.49 Acquired absence of other specified parts of digestive tract; Z88.2 Allergy status to sulfonamides; Z79.899 Other long term (current) drug therapy; Z68.30 Body mass index [BMI] 30.0-30.9, adult
CPT/HCPCS: 36415; 71045; 74018; 76770; 80048; 80202; 82040; 82570; 83735; 83935; 84100; 84156; 84300; 93970; 97110; 97162; 97166; 97530; 97535; A6261; J3370; J7030; J7040; J7060

== ENCOUNTER 2018-08-08 10:40 | Inpatient (IN) | payer MEDICARE, MEDICAID ==
[~2018-08-08] VITALS: Ht 185.4 cm; Wt 104.3 kg
[2018-08-08 10:00] VITALS: BP 117/84
[2018-08-08 10:40] VITALS: BP 117/84
[2018-08-08] MEDS: SODIUM CHLORIDE 0.9% 1,000 ML IV SCH (15:49)
[2018-08-08 16:00] VITALS: BP 129/90
[2018-08-08] MEDS ORDERED: MEDICATION NOT ON FORMULARY EA (Finasteride 5 MG) PO SCH (16:30)
[2018-08-08 17:24] VITALS: BP 114/84
[2018-08-08 17:35] VITALS: BP 109/71
[2018-08-08 20:00] VITALS: BP 135/87
[2018-08-08] MEDS: TAMSULOSIN HCL 0.4MG SR CAPSULE PO SCH (20:22)
[2018-08-09] VITALS (16 sets, daily range): BP systolic 121–148; BP diastolic 81–105
[2018-08-09] MEDS: SODIUM CHLORIDE 0.9% 1,000 ML IV SCH (01:08)
[2018-08-09] MEDS: METRONIDAZOLE 500MG TABLET PO SCH ×3 (06:14→21:10)
[2018-08-09] MEDS ORDERED: FENTANYL CITRATE/PF 50MCG/ML 2ML VIAL ONE (07:29)
[2018-08-09] MEDS ORDERED: LIDOCAINE HCL 1% 20ML VIAL (Pyxis) INJ ONE (07:33)
[2018-08-09] MEDS ORDERED: SODIUM BICARBONATE 4% (2.4MEQ) 5ML VIAL IV ONE (07:34)
[2018-08-09] MEDS ORDERED: FENTANYL CITRATE/PF 50MCG/ML 2ML VIAL IV NR (08:30)
[2018-08-09] MEDS: LEVOFLOXACIN 500MG TABLET PO SCH (10:14)
[2018-08-09] MEDS: TAMSULOSIN HCL 0.4MG SR CAPSULE PO SCH (10:14)
[2018-08-09] MEDS: FINASTERIDE 5MG TABLET PO SCH (10:14)
[2018-08-09] MEDS: DOXYCYCLINE 100 MG in DEXT 5% WATER 100 ML IV SCH ×2 (12:10→23:01)
[2018-08-09] MEDS ORDERED: METHYLPREDNISOLONE SOD SUCC 125 MG/2 ML VIAL IV NR (14:15)
[2018-08-09 15:21] LABS: HEMATOCRIT 32.3 % (42.0-52.0); HEMOGLOBIN 11.1 g/dL (14.0-18.0)
[2018-08-09 15:51] LABS: INR 1.2; PROTHROMBIN TIME 11.7 sec (9.1-11.1)
[2018-08-09 15:57] LABS: CHLORIDE 103 mEq/L (98-107)
[2018-08-09 18:01] LABS: BASOPHILS % 0.5 % (0.0-2.0); EOSINOPHILS % 2.1 % (0.0-5.0); HEMATOCRIT. 27.4 % (42.0-52.0); HEMOGLOBIN. 9.4 g/dL (14.0-18.0); LYMPHOCYTES % 20.6 % (20.0-50.0); MEAN CORPUSCULAR VOLUME 87.2 fL (80.0-94.0); MEAN PLATELET VOLUME 6.7 fl (7.4-10.4); MONOCYTES % 7.8 % (2.0-8.0); PLATELET 317 x1000/uL (130-400); RED BLOOD CELL COUNT 3.15 mill/uL (4.7-6.1); RED CELL DISTRIBUTION WIDTH 14.4 % (11.6-14.6)
[2018-08-10] VITALS: BP 137/94
[2018-08-10 04:00] VITALS: BP 136/102
[2018-08-10] MEDS: METRONIDAZOLE 500MG TABLET PO SCH ×3 (05:29→22:00)
[2018-08-10] MEDS: SODIUM CHLORIDE 0.9% 1,000 ML IV SCH ×2 (05:35→17:30)
[2018-08-10 07:47] LABS: BASOPHILS % 0.2 % (0.0-2.0); HEMOGLOBIN. 10.4 g/dL (14.0-18.0); LYMPHOCYTES % 16.2 % (20.0-50.0); MEAN CORPUSCULAR HEMOGLOBIN 29.8 pg (28.0-32.0); MEAN CORPUSCULAR VOLUME 89.1 fL (80.0-94.0); MEAN PLATELET VOLUME 6.6 fl (7.4-10.4); MONOCYTES % 4.5 % (2.0-8.0); NEUTROPHILS % 79.1 % (40.0-76.0); PLATELET 360 x1000/uL (130-400); RED BLOOD CELL COUNT 3.48 mill/uL (4.7-6.1); RED CELL DISTRIBUTION WIDTH 14.8 % (11.6-14.6)
[2018-08-10 07:53] LABS: CHLORIDE 105 mEq/L (98-107)
[2018-08-10 08:00] VITALS: BP 136/98
[2018-08-10 08:08] LABS: PHOSPHORUS 5.5 mg/dL (2.5-4.9)
[2018-08-10] MEDS: FINASTERIDE 5MG TABLET PO SCH (09:09)
[2018-08-10] MEDS: TAMSULOSIN HCL 0.4MG SR CAPSULE PO SCH (09:09)
[2018-08-10] MEDS: DOXYCYCLINE 100 MG in DEXT 5% WATER 100 ML IV SCH ×2 (11:02→22:00)
[2018-08-10 11:57] VITALS: BP 107/74
[2018-08-10] MEDS ORDERED: METHYLPREDNISOLONE SOD SUCC 125 MG/2 ML VIAL IV NR (13:45)
[2018-08-10 16:28] VITALS: BP 137/84
[2018-08-10 20:00] VITALS: BP 133/83
[2018-08-10] MEDS ORDERED: BISACODYL 10MG SUPP PR PRN (21:00)
[2018-08-10] MEDS ORDERED: BISACODYL 5MG TABLET PO PRN (21:00)
[2018-08-10] MEDS ORDERED: WARFARIN SODIUM 5MG TABLET PO NR (22:00)
[2018-08-10] MEDS: DOCUSATE SODIUM 250MG CAPSULE PO SCH (22:00)
[2018-08-11] VITALS: BP 136/90
[2018-08-11 04:00] VITALS: BP 128/83
[2018-08-11] MEDS: METRONIDAZOLE 500MG TABLET PO SCH ×3 (06:24→20:59)
[2018-08-11 08:00] VITALS: BP 144/85
[2018-08-11] MEDS: DOCUSATE SODIUM 250MG CAPSULE PO SCH (09:16)
[2018-08-11] MEDS: SODIUM CHLORIDE 0.9% 1,000 ML IV SCH ×3 (09:16→20:59)
[2018-08-11] MEDS: TAMSULOSIN HCL 0.4MG SR CAPSULE PO SCH (09:17)
[2018-08-11] MEDS: FINASTERIDE 5MG TABLET PO SCH (09:17)
[2018-08-11 09:58] LABS: BASOPHILS % 0.2 % (0.0-2.0); HEMATOCRIT. 31.2 % (42.0-52.0); HEMOGLOBIN. 10.5 g/dL (14.0-18.0); LYMPHOCYTES % 14.9 % (20.0-50.0); MEAN CORPUSCULAR HEMOGLOBIN 29.5 pg (28.0-32.0); MEAN CORPUSCULAR VOLUME 87.8 fL (80.0-94.0); MEAN PLATELET VOLUME 6.3 fl (7.4-10.4); MONOCYTES % 5.9 % (2.0-8.0); PLATELET 438 x1000/uL (130-400); RED BLOOD CELL COUNT 3.56 mill/uL (4.7-6.1); RED CELL DISTRIBUTION WIDTH 14.9 % (11.6-14.6)
[2018-08-11 10:01] LABS: INR 1.1; PROTHROMBIN TIME 11.3 sec (9.1-11.1)
[2018-08-11 10:14] LABS: CHLORIDE 104 mEq/L (98-107)
[2018-08-11 10:30] LABS: PHOSPHORUS 5.7 mg/dL (2.5-4.9)
[2018-08-11] MEDS ORDERED: METHYLPREDNISOLONE SOD SUCC 125 MG/2 ML VIAL IV NR (11:00)
[2018-08-11 12:00] VITALS: BP 142/94
[2018-08-11] MEDS: LEVOFLOXACIN 500MG TABLET PO SCH (12:01)
[2018-08-11] MEDS: DOXYCYCLINE 100 MG in DEXT 5% WATER 100 ML IV SCH (12:01)
[2018-08-11 15:47] LABS: CLARITY URINE CLOUDY (CLEAR); COLOR URINE YELLOW (YELLOW); KETONES URINE NEGATIVE (NEGATIVE); LEUKOCYTE ESTERASE URINE 2+ (NEGATIVE); NITRITE URINE NEGATIVE (NEGATIVE); OCCULT BLOOD URINE TRACE (NEGATIVE); PROTEIN URINE NEGATIVE (NEGATIVE); SPECIFIC GRAVITY URINE 1.009 (1.005-1.030); UROBILINOGEN URINE 0.2 E.U./dL (0.2-1.0)
[2018-08-11 16:00] VITALS: BP 128/81
[2018-08-11] MEDS ORDERED: WARFARIN SODIUM 5MG TABLET PO SCH (18:00)
[2018-08-11 20:00] VITALS: BP 122/90
[2018-08-11] MEDS: DOXYCYCLINE HYCLATE 100MG CAPSULE PO SCH (20:58)
[2018-08-12] VITALS: BP 126/67
[2018-08-12 04:00] VITALS: BP 124/79
[2018-08-12] MEDS: METRONIDAZOLE 500MG TABLET PO SCH ×2 (06:21→13:25)
[2018-08-12 07:37] LABS: BASOPHILS % 0.1 % (0.0-2.0); EOSINOPHILS % 0.1 % (0.0-5.0); HEMATOCRIT. 27.7 % (42.0-52.0); HEMOGLOBIN. 9.6 g/dL (14.0-18.0); LYMPHOCYTES % 22.3 % (20.0-50.0); MEAN CORPUSCULAR HEMOGLOBIN 30.4 pg (28.0-32.0); MEAN CORPUSCULAR VOLUME 87.7 fL (80.0-94.0); MEAN PLATELET VOLUME 6.4 fl (7.4-10.4); MONOCYTES % 7.1 % (2.0-8.0); NEUTROPHILS % 70.4 % (40.0-76.0); PLATELET 382 x1000/uL (130-400); RED BLOOD CELL COUNT 3.16 mill/uL (4.7-6.1); RED CELL DISTRIBUTION WIDTH 14.9 % (11.6-14.6)
[2018-08-12 07:42] LABS: INR 1.2; PROTHROMBIN TIME 12.5 sec (9.1-11.1)
[2018-08-12 07:45] LABS: CHLORIDE 107 mEq/L (98-107)
[2018-08-12 07:56] LABS: PHOSPHORUS 5.8 mg/dL (2.5-4.9)
[2018-08-12 08:00] VITALS: BP 134/88
[2018-08-12] MEDS: DOCUSATE SODIUM 250MG CAPSULE PO SCH (08:40)
[2018-08-12] MEDS: TAMSULOSIN HCL 0.4MG SR CAPSULE PO SCH (08:42)
[2018-08-12] MEDS: DOXYCYCLINE HYCLATE 100MG CAPSULE PO SCH (08:42)
[2018-08-12] MEDS: FINASTERIDE 5MG TABLET PO SCH (08:42)
[2018-08-12] MEDS: SODIUM CHLORIDE 0.9% 1,000 ML IV SCH (08:43)
[2018-08-12 12:00] VITALS: BP_SYST 104; BP_SYST 134; BP_DIAS 73; BP_DIAS 88
[2018-08-12 15:05] VITALS: BP_SYST 104; BP_SYST 127; BP_DIAS 73; BP_DIAS 85
[2018-08-12 16:00] VITALS: BP 127/85
[2018-08-12] MEDS ORDERED: WARFARIN SODIUM 5MG TABLET PO SCH (18:00)
[2018-08-13 15:06] LABS: ANTI-MYELOPEROXIDASE AB < 9.0 U/mL (0.0-9.0); ANTI-PROTEINASE 3 ABS < 3.5 U/mL (0.0-3.5)
[2018-08-16 13:11] LABS: CYTOPLASMIC C-ANCA <1:20 titer (Neg:<1:20); PERINUCLEAR P-ANCA <1:20 titer (Neg:<1:20)
== END 2018-08-12 18:15 | DRG 683 ==
LOC: 8WST 10:40
PROVIDERS: ADMIT Family Medicine; ATTEND Family Medicine
PROC: 0TB03ZX Excision of Right Kidney, Percutaneous Approach, Diagnostic (ICD-10-PCS; principal; 2018-08-09)
DX: N17.0 Acute kidney failure with tubular necrosis (principal); M46.27 Osteomyelitis of vertebra, lumbosacral region; D68.59 Other primary thrombophilia; N39.0 Urinary tract infection, site not specified; R32 Unspecified urinary incontinence; E66.9 Obesity, unspecified; I48.2 Chronic atrial fibrillation; E78.5 Hyperlipidemia, unspecified; I87.2 Venous insufficiency (chronic) (peripheral); L97.519 Non-pressure chronic ulcer of other part of right foot with unspecified severity; Z96.642 Presence of left artificial hip joint; R15.9 Full incontinence of feces; R73.9 Hyperglycemia, unspecified; M54.30 Sciatica, unspecified side; R26.2 Difficulty in walking, not elsewhere classified; M19.90 Unspecified osteoarthritis, unspecified site; R33.8 Other retention of urine; N40.1 Benign prostatic hyperplasia with lower urinary tract symptoms; Z79.01 Long term (current) use of anticoagulants; Z86.61 Personal history of infections of the central nervous system; Z88.2 Allergy status to sulfonamides; Z90.49 Acquired absence of other specified parts of digestive tract
CPT/HCPCS: 36415; 76942; 80048; 80076; 82570; 82784; 83520; 83735; 84100; 84156; 85014; 85018; 86256; 88305; 88346; 88348; 97116; 97162; 97530; J2930; J3010; J3490; J7030; J7050; J7060

== ENCOUNTER 2018-08-12 18:18 | Inpatient (IN) | payer MEDICARE, MEDICAID ==
[~2018-08-12] VITALS: Ht 185.4 cm; Wt 104.3 kg
[~2018-08-12 18:18] MED LIST changes: -ACET-2853 PO; -AMIN30LI2 PO; -ASCO100T12 PO; -BISA10SU8 RC; -CYCL10TA7 PO; -DOCU100T PO; -HYDR25TA PO; -LIDO700A30 TP; -LIP40; -MELO-106 PO; -METO-539 PO; -MOM MT; -MULT-230 PO; -NA P230E RC; -ONDA4TAB5 PO; -TRAM50TA3 PO; -WARF-53 PO
[2018-08-12 19:00] VITALS: BP 109/76
[2018-08-12 20:00] VITALS: BP_SYST 109; BP_SYST 138; BP_DIAS 74; BP_DIAS 76
[2018-08-12] MEDS ORDERED: BISACODYL 5MG TABLET PO PRN (21:00)
[2018-08-12] MEDS ORDERED: BISACODYL 10MG SUPP PR PRN (21:00)
[2018-08-12] MEDS: METRONIDAZOLE 500MG TABLET PO SCH (22:31)
[2018-08-12] MEDS: SODIUM CHLORIDE 0.9% 1,000 ML IV SCH (22:31)
[2018-08-12] MEDS: DOXYCYCLINE HYCLATE 100MG CAPSULE PO SCH (22:32)
[2018-08-13] MEDS: METRONIDAZOLE 500MG TABLET PO SCH ×3 (05:51→21:27)
[2018-08-13] MEDS: SODIUM CHLORIDE 0.9% 1,000 ML IV SCH (06:31)
[2018-08-13 07:17] LABS: INR 1.4; PROTHROMBIN TIME 13.8 sec (9.1-11.1)
[2018-08-13 08:00] VITALS: BP 139/93
[2018-08-13] MEDS: FINASTERIDE 5MG TABLET PO SCH (08:51)
[2018-08-13] MEDS: TAMSULOSIN HCL 0.4MG SR CAPSULE PO SCH (08:51)
[2018-08-13] MEDS: DOXYCYCLINE HYCLATE 100MG CAPSULE PO SCH (08:51)
[2018-08-13] MEDS ORDERED: DOCUSATE SODIUM 250MG CAPSULE PO SCH (09:00)
[2018-08-13] MEDS ORDERED: LEVOFLOXACIN 500MG TABLET PO SCH ×2 (11:00)
[2018-08-13] MEDS: LEVOFLOXACIN 500MG TABLET PO SCH (11:20)
[2018-08-13 16:37] LABS: BASOPHILS % 0.4 % (0.0-2.0); EOSINOPHILS % 1.5 % (0.0-5.0); HEMATOCRIT. 30.7 % (42.0-52.0); HEMOGLOBIN. 10.2 g/dL (14.0-18.0); LYMPHOCYTES % 30.3 % (20.0-50.0); MEAN CORPUSCULAR HEMOGLOBIN 29.5 pg (28.0-32.0); MEAN CORPUSCULAR VOLUME 88.6 fL (80.0-94.0); MEAN PLATELET VOLUME 6.2 fl (7.4-10.4); MONOCYTES % 8.9 % (2.0-8.0); NEUTROPHILS % 58.9 % (40.0-76.0); PLATELET 376 x1000/uL (130-400); RED BLOOD CELL COUNT 3.47 mill/uL (4.7-6.1); RED CELL DISTRIBUTION WIDTH 15.2 % (11.6-14.6)
[2018-08-13 16:49] LABS: CHLORIDE 110 mEq/L (98-107)
[2018-08-13] MEDS ORDERED: WARFARIN SODIUM 3MG TABLET PO NR (18:00)
[2018-08-13] MEDS ORDERED: WARFARIN SODIUM 5MG TABLET PO SCH (18:00)
[2018-08-13] MEDS ORDERED: DOCUSATE SODIUM 250MG CAPSULE PO PRN (19:45)
[2018-08-13 20:00] VITALS: BP 125/87
[2018-08-13] MEDS: DOXYCYCLINE 100 MG in DEXT 5% WATER 100 ML IV SCH (21:27)
[2018-08-13] MEDS: NYSTATIN POWDER 15GM TOP SCH (23:11)
[2018-08-14] MEDS: SODIUM CHLORIDE 0.9% 1,000 ML IV SCH (02:41)
[2018-08-14] MEDS: METRONIDAZOLE 500MG TABLET PO SCH ×3 (05:11→21:19)
[2018-08-14 05:52] LABS: INR 1.5; PROTHROMBIN TIME 15.4 sec (9.1-11.1)
[2018-08-14 06:01] LABS: BASOPHILS % 0.4 % (0.0-2.0); EOSINOPHILS % 2.9 % (0.0-5.0); HEMATOCRIT. 28.4 % (42.0-52.0); HEMOGLOBIN. 9.6 g/dL (14.0-18.0); LYMPHOCYTES % 31.6 % (20.0-50.0); MEAN CORPUSCULAR HEMOGLOBIN 29.7 pg (28.0-32.0); MEAN CORPUSCULAR VOLUME 88.3 fL (80.0-94.0); MEAN PLATELET VOLUME 6.4 fl (7.4-10.4); MONOCYTES % 8.1 % (2.0-8.0); PLATELET 356 x1000/uL (130-400); RED BLOOD CELL COUNT 3.21 mill/uL (4.7-6.1)
[2018-08-14 06:13] LABS: PHOSPHORUS 5.3 mg/dL (2.5-4.9)
[2018-08-14 08:00] VITALS: BP 138/81
[2018-08-14] MEDS: FINASTERIDE 5MG TABLET PO SCH (09:10)
[2018-08-14] MEDS: TAMSULOSIN HCL 0.4MG SR CAPSULE PO SCH (09:11)
[2018-08-14] MEDS: DOXYCYCLINE 100 MG in DEXT 5% WATER 100 ML IV SCH ×2 (09:11→20:50)
[2018-08-14] MEDS: NYSTATIN POWDER 15GM TOP SCH ×2 (09:11→20:50)
[2018-08-14] MEDS ORDERED: MAGNESIUM 2 G PREMIX 50 ML IV SCH (12:00)
[2018-08-14] MEDS ORDERED: WARFARIN SODIUM 3MG TABLET PO NR (18:00)
[2018-08-14 20:00] VITALS: BP 128/77
[2018-08-15] MEDS: METRONIDAZOLE 500MG TABLET PO SCH ×3 (05:27→21:41)
[2018-08-15 06:56] LABS: INR 1.7; PROTHROMBIN TIME 16.5 sec (9.1-11.1)
[2018-08-15 06:58] LABS: BASOPHILS % 0.5 % (0.0-2.0); HEMATOCRIT. 28.7 % (42.0-52.0); HEMOGLOBIN. 9.8 g/dL (14.0-18.0); LYMPHOCYTES % 32.8 % (20.0-50.0); MEAN CORPUSCULAR HEMOGLOBIN 29.9 pg (28.0-32.0); MEAN CORPUSCULAR VOLUME 88.1 fL (80.0-94.0); MEAN PLATELET VOLUME 6.5 fl (7.4-10.4); MONOCYTES % 6.9 % (2.0-8.0); NEUTROPHILS % 55.8 % (40.0-76.0); PLATELET 358 x1000/uL (130-400); RED BLOOD CELL COUNT 3.26 mill/uL (4.7-6.1)
[2018-08-15 07:51] LABS: PHOSPHORUS 4.9 mg/dL (2.5-4.9)
[2018-08-15 07:59] VITALS: BP 133/70
[2018-08-15] MEDS: FINASTERIDE 5MG TABLET PO SCH (09:43)
[2018-08-15] MEDS: TAMSULOSIN HCL 0.4MG SR CAPSULE PO SCH (09:43)
[2018-08-15] MEDS: NYSTATIN POWDER 15GM TOP SCH ×3 (09:43→20:23)
[2018-08-15] MEDS: DOXYCYCLINE 100 MG in DEXT 5% WATER 100 ML IV SCH ×2 (11:08→20:23)
[2018-08-15] MEDS: LEVOFLOXACIN 500MG TABLET PO SCH (11:08)
[2018-08-15] MEDS ORDERED: BISACODYL 5MG TABLET PO PRN (13:30)
[2018-08-15] MEDS ORDERED: MAGNESIUM 2 G PREMIX 50 ML IV NR (16:00)
[2018-08-15] MEDS: DIGOXIN 125MCG TABLET PO SCH (17:15)
[2018-08-15] MEDS ORDERED: WARFARIN SODIUM 7.5MG TABLET PO SCH (18:00)
[2018-08-15 20:00] VITALS: BP 114/82
[2018-08-16] MEDS: METRONIDAZOLE 500MG TABLET PO SCH ×3 (05:21→21:38)
[2018-08-16 07:25] LABS: PROTHROMBIN TIME 19.4 sec (9.1-11.1)
[2018-08-16 07:42] LABS: PHOSPHORUS 4.3 mg/dL (2.5-4.9)
[2018-08-16 08:00] VITALS: BP 138/92
[2018-08-16] MEDS: DOXYCYCLINE 100 MG in DEXT 5% WATER 100 ML IV SCH ×2 (09:49→21:38)
[2018-08-16] MEDS: FINASTERIDE 5MG TABLET PO SCH (09:49)
[2018-08-16] MEDS: TAMSULOSIN HCL 0.4MG SR CAPSULE PO SCH (09:49)
[2018-08-16] MEDS: NYSTATIN POWDER 15GM TOP SCH ×2 (10:18→21:48)
[2018-08-16] MEDS ORDERED: WARFARIN SODIUM 7.5MG TABLET PO SCH (18:00)
[2018-08-16 20:00] VITALS: BP 116/79
[2018-08-17] MEDS: METRONIDAZOLE 500MG TABLET PO SCH ×3 (05:57→21:11)
[2018-08-17 06:52] LABS: INR 2.4; PROTHROMBIN TIME 23.3 sec (9.1-11.1)
[2018-08-17 07:11] LABS: BASOPHILS % 0.6 % (0.0-2.0); EOSINOPHILS % 3.5 % (0.0-5.0); HEMATOCRIT. 30.3 % (42.0-52.0); HEMOGLOBIN. 10.3 g/dL (14.0-18.0); LYMPHOCYTES % 35.7 % (20.0-50.0); MEAN CORPUSCULAR HEMOGLOBIN 30.1 pg (28.0-32.0); MEAN CORPUSCULAR VOLUME 88.4 fL (80.0-94.0); MEAN PLATELET VOLUME 6.7 fl (7.4-10.4); MONOCYTES % 6.7 % (2.0-8.0); NEUTROPHILS % 53.5 % (40.0-76.0); PLATELET 322 x1000/uL (130-400); RED BLOOD CELL COUNT 3.42 mill/uL (4.7-6.1); RED CELL DISTRIBUTION WIDTH 15.2 % (11.6-14.6)
[2018-08-17 08:21] VITALS: BP 119/87
[2018-08-17] MEDS ORDERED: POTASSIUM CHLORIDE 20MEQ TABLET SR PO SCH (08:30)
[2018-08-17] MEDS: FINASTERIDE 5MG TABLET PO SCH (08:48)
[2018-08-17] MEDS: TAMSULOSIN HCL 0.4MG SR CAPSULE PO SCH (08:48)
[2018-08-17] MEDS: NYSTATIN POWDER 15GM TOP SCH ×2 (08:49→21:11)
[2018-08-17] MEDS: MAGNESIUM OXIDE 400MG TABLET PO SCH (08:49)
[2018-08-17] MEDS: POTASSIUM CHLORIDE 10MEQ TABLET SR PO SCH (08:49)
[2018-08-17] MEDS: DOXYCYCLINE 100 MG in DEXT 5% WATER 100 ML IV SCH (08:50)
[2018-08-17] MEDS ORDERED: MAGNESIUM OXIDE 400MG TABLET PO SCH ×2 (09:00)
[2018-08-17] MEDS: LEVOFLOXACIN 500MG TABLET PO SCH (11:14)
[2018-08-17 12:30] LABS: CLARITY URINE CLOUDY (CLEAR); COLOR URINE YELLOW (YELLOW); KETONES URINE NEGATIVE (NEGATIVE); LEUKOCYTE ESTERASE URINE 1+ (NEGATIVE); NITRITE URINE NEGATIVE (NEGATIVE); OCCULT BLOOD URINE NEGATIVE (NEGATIVE); PROTEIN URINE NEGATIVE (NEGATIVE); UROBILINOGEN URINE 0.2 E.U./dL (0.2-1.0)
[2018-08-17] MEDS: DOXYCYCLINE HYCLATE 100MG CAPSULE PO SCH (17:08)
[2018-08-17] MEDS: DIGOXIN 125MCG TABLET PO SCH (17:08)
[2018-08-17] MEDS ORDERED: WARFARIN SODIUM 4MG TABLET PO NR (18:00)
[2018-08-17 20:00] VITALS: BP 119/81
[2018-08-18] MEDS: METRONIDAZOLE 500MG TABLET PO SCH ×3 (05:20→21:12)
[2018-08-18 06:09] LABS: INR 2.5; PROTHROMBIN TIME 24.8 sec (9.1-11.1)
[2018-08-18 06:15] LABS: BASOPHILS % 0.7 % (0.0-2.0); EOSINOPHILS % 2.4 % (0.0-5.0); HEMATOCRIT. 28.4 % (42.0-52.0); HEMOGLOBIN. 9.6 g/dL (14.0-18.0); LYMPHOCYTES % 39.8 % (20.0-50.0); MEAN CORPUSCULAR VOLUME 88.5 fL (80.0-94.0); MEAN PLATELET VOLUME 6.5 fl (7.4-10.4); MONOCYTES % 8.4 % (2.0-8.0); NEUTROPHILS % 48.7 % (40.0-76.0); PLATELET 287 x1000/uL (130-400); RED BLOOD CELL COUNT 3.21 mill/uL (4.7-6.1); RED CELL DISTRIBUTION WIDTH 15.1 % (11.6-14.6)
[2018-08-18 08:00] VITALS: BP 125/89
[2018-08-18 08:18] LABS: PHOSPHORUS 4.2 mg/dL (2.5-4.9)
[2018-08-18] MEDS: MAGNESIUM OXIDE 400MG TABLET PO SCH (09:11)
[2018-08-18] MEDS: DOXYCYCLINE HYCLATE 100MG CAPSULE PO SCH ×2 (09:11→17:03)
[2018-08-18] MEDS: POTASSIUM CHLORIDE 10MEQ TABLET SR PO SCH (09:11)
[2018-08-18] MEDS: FINASTERIDE 5MG TABLET PO SCH (09:11)
[2018-08-18] MEDS: TAMSULOSIN HCL 0.4MG SR CAPSULE PO SCH (09:12)
[2018-08-18] MEDS: NYSTATIN POWDER 15GM TOP SCH ×2 (09:12→21:12)
[2018-08-18] MEDS ORDERED: WARFARIN SODIUM 5MG TABLET PO NR (18:00)
[2018-08-18 20:00] VITALS: BP 107/75
[2018-08-19] MEDS: METRONIDAZOLE 500MG TABLET PO SCH ×3 (05:15→21:55)
[2018-08-19 06:56] LABS: INR 2.5; PROTHROMBIN TIME 25.2 sec (9.1-11.1)
[2018-08-19 08:00] VITALS: BP 130/89
[2018-08-19] MEDS: MAGNESIUM OXIDE 400MG TABLET PO SCH (08:43)
[2018-08-19] MEDS: POTASSIUM CHLORIDE 10MEQ TABLET SR PO SCH (08:43)
[2018-08-19] MEDS: DOXYCYCLINE HYCLATE 100MG CAPSULE PO SCH ×2 (08:43→16:50)
[2018-08-19] MEDS: TAMSULOSIN HCL 0.4MG SR CAPSULE PO SCH (08:43)
[2018-08-19] MEDS: FINASTERIDE 5MG TABLET PO SCH (08:43)
[2018-08-19] MEDS: NYSTATIN POWDER 15GM TOP SCH ×2 (08:49→21:53)
[2018-08-19] MEDS: LEVOFLOXACIN 500MG TABLET PO SCH (10:25)
[2018-08-19] MEDS: DIGOXIN 125MCG TABLET PO SCH (17:04)
[2018-08-19] MEDS ORDERED: WARFARIN SODIUM 5MG TABLET PO NR (18:00)
[2018-08-19 20:00] VITALS: BP 118/81
[2018-08-20] MEDS: METRONIDAZOLE 500MG TABLET PO SCH ×3 (05:49→21:12)
[2018-08-20 06:39] LABS: INR 3.1; PROTHROMBIN TIME 30.1 sec (9.1-11.1)
[2018-08-20 06:48] LABS: BASOPHILS % 0.8 % (0.0-2.0); EOSINOPHILS % 3.3 % (0.0-5.0); HEMATOCRIT. 29.5 % (42.0-52.0); LYMPHOCYTES % 37.4 % (20.0-50.0); MEAN CORPUSCULAR HEMOGLOBIN 29.9 pg (28.0-32.0); MEAN CORPUSCULAR VOLUME 88.4 fL (80.0-94.0); MEAN PLATELET VOLUME 7.2 fl (7.4-10.4); MONOCYTES % 8.5 % (2.0-8.0); PLATELET 282 x1000/uL (130-400); RED BLOOD CELL COUNT 3.33 mill/uL (4.7-6.1); RED CELL DISTRIBUTION WIDTH 15.4 % (11.6-14.6)
[2018-08-20 07:41] LABS: PHOSPHORUS 4.7 mg/dL (2.5-4.9)
[2018-08-20 08:32] VITALS: BP 127/58
[2018-08-20] MEDS: TAMSULOSIN HCL 0.4MG SR CAPSULE PO SCH (08:36)
[2018-08-20] MEDS: POTASSIUM CHLORIDE 10MEQ TABLET SR PO SCH (08:36)
[2018-08-20] MEDS: MAGNESIUM OXIDE 400MG TABLET PO SCH (08:36)
[2018-08-20] MEDS: DOXYCYCLINE HYCLATE 100MG CAPSULE PO SCH ×2 (08:36→17:11)
[2018-08-20] MEDS: NYSTATIN POWDER 15GM TOP SCH ×2 (08:36→20:21)
[2018-08-20] MEDS: FINASTERIDE 5MG TABLET PO SCH (08:36)
[2018-08-20 20:00] VITALS: BP 113/68
[2018-08-21] MEDS: METRONIDAZOLE 500MG TABLET PO SCH ×3 (05:26→21:24)
[2018-08-21 07:18] LABS: BASOPHILS % 0.9 % (0.0-2.0); EOSINOPHILS % 3.6 % (0.0-5.0); HEMATOCRIT. 29.4 % (42.0-52.0); HEMOGLOBIN. 10.2 g/dL (14.0-18.0); LYMPHOCYTES % 35.1 % (20.0-50.0); MEAN CORPUSCULAR HEMOGLOBIN 30.5 pg (28.0-32.0); MEAN CORPUSCULAR VOLUME 88.3 fL (80.0-94.0); MEAN PLATELET VOLUME 7.3 fl (7.4-10.4); NEUTROPHILS % 52.4 % (40.0-76.0); PLATELET 282 x1000/uL (130-400); RED BLOOD CELL COUNT 3.34 mill/uL (4.7-6.1); RED CELL DISTRIBUTION WIDTH 15.7 % (11.6-14.6)
[2018-08-21 07:22] LABS: INR 2.9; PROTHROMBIN TIME 28.4 sec (9.1-11.1)
[2018-08-21 07:30] VITALS: BP 124/74
[2018-08-21 08:07] LABS: PHOSPHORUS 4.3 mg/dL (2.5-4.9)
[2018-08-21] MEDS: MAGNESIUM OXIDE 400MG TABLET PO SCH (08:55)
[2018-08-21] MEDS: DOXYCYCLINE HYCLATE 100MG CAPSULE PO SCH ×2 (08:55→17:16)
[2018-08-21] MEDS: FINASTERIDE 5MG TABLET PO SCH (08:56)
[2018-08-21] MEDS: POTASSIUM CHLORIDE 10MEQ TABLET SR PO SCH (08:56)
[2018-08-21] MEDS: TAMSULOSIN HCL 0.4MG SR CAPSULE PO SCH (08:56)
[2018-08-21] MEDS: NYSTATIN POWDER 15GM TOP SCH ×2 (08:56→21:24)
[2018-08-21] MEDS: LEVOFLOXACIN 500MG TABLET PO SCH (11:13)
[2018-08-21] MEDS: DIGOXIN 125MCG TABLET PO SCH (17:16)
[2018-08-21 20:00] VITALS: BP 122/91
[2018-08-22] MEDS: METRONIDAZOLE 500MG TABLET PO SCH ×3 (05:44→21:35)
[2018-08-22 07:55] LABS: INR 2.5
[2018-08-22 08:00] VITALS: BP 126/78
[2018-08-22] MEDS: POTASSIUM CHLORIDE 10MEQ TABLET SR PO SCH (08:43)
[2018-08-22] MEDS: TAMSULOSIN HCL 0.4MG SR CAPSULE PO SCH (08:43)
[2018-08-22] MEDS: DOXYCYCLINE HYCLATE 100MG CAPSULE PO SCH ×2 (08:43→17:14)
[2018-08-22] MEDS: NYSTATIN POWDER 15GM TOP SCH ×2 (08:43→21:35)
[2018-08-22] MEDS: MAGNESIUM OXIDE 400MG TABLET PO SCH (08:43)
[2018-08-22] MEDS: FINASTERIDE 5MG TABLET PO SCH (08:43)
[2018-08-22] MEDS ORDERED: WARFARIN SODIUM 2MG TABLET PO SCH (18:00)
[2018-08-22 20:00] VITALS: BP 132/70
[2018-08-23] MEDS: METRONIDAZOLE 500MG TABLET PO SCH ×2 (05:56→13:44)
[2018-08-23 06:43] LABS: INR 2.4; PROTHROMBIN TIME 23.7 sec (9.1-11.1)
[2018-08-23 07:22] LABS: BASOPHILS % 0.5 % (0.0-2.0); EOSINOPHILS % 3.8 % (0.0-5.0); HEMATOCRIT. 31.4 % (42.0-52.0); HEMOGLOBIN. 10.6 g/dL (14.0-18.0); LYMPHOCYTES % 37.1 % (20.0-50.0); MEAN CORPUSCULAR VOLUME 88.9 fL (80.0-94.0); MEAN PLATELET VOLUME 7.5 fl (7.4-10.4); MONOCYTES % 7.8 % (2.0-8.0); NEUTROPHILS % 50.8 % (40.0-76.0); PLATELET 261 x1000/uL (130-400); RED BLOOD CELL COUNT 3.53 mill/uL (4.7-6.1); RED CELL DISTRIBUTION WIDTH 15.3 % (11.6-14.6)
[2018-08-23 07:52] LABS: PHOSPHORUS 4.3 mg/dL (2.5-4.9)
[2018-08-23 08:07] VITALS: BP 105/79
[2018-08-23] MEDS: MAGNESIUM OXIDE 400MG TABLET PO SCH (08:49)
[2018-08-23] MEDS: POTASSIUM CHLORIDE 10MEQ TABLET SR PO SCH (08:49)
[2018-08-23] MEDS: DOXYCYCLINE HYCLATE 100MG CAPSULE PO SCH ×2 (08:49→17:09)
[2018-08-23] MEDS: FINASTERIDE 5MG TABLET PO SCH (08:50)
[2018-08-23] MEDS: NYSTATIN POWDER 15GM TOP SCH ×2 (08:50→21:14)
[2018-08-23] MEDS: TAMSULOSIN HCL 0.4MG SR CAPSULE PO SCH (08:50)
[2018-08-23] MEDS: LEVOFLOXACIN 500MG TABLET PO SCH (13:44)
[2018-08-23] MEDS: DIGOXIN 125MCG TABLET PO SCH (17:09)
[2018-08-23 20:00] VITALS: BP 107/74
[2018-08-24 05:44] LABS: INR 2.1; PROTHROMBIN TIME 20.9 sec (9.1-11.1)
[2018-08-24 08:13] VITALS: BP 127/87
[2018-08-24] MEDS: POTASSIUM CHLORIDE 10MEQ TABLET SR PO SCH (09:51)
[2018-08-24] MEDS: DOXYCYCLINE HYCLATE 100MG CAPSULE PO SCH ×2 (09:52→17:13)
[2018-08-24] MEDS: METRONIDAZOLE 500MG TABLET PO SCH ×3 (09:52→21:38)
[2018-08-24] MEDS: FINASTERIDE 5MG TABLET PO SCH (09:52)
[2018-08-24] MEDS: TAMSULOSIN HCL 0.4MG SR CAPSULE PO SCH (09:52)
[2018-08-24] MEDS: NYSTATIN POWDER 15GM TOP SCH ×2 (09:52→20:56)
[2018-08-24] MEDS: MAGNESIUM OXIDE 400MG TABLET PO SCH (09:52)
[2018-08-24] MEDS ORDERED: WARFARIN SODIUM 5MG TABLET PO NR (18:00)
[2018-08-24 20:00] VITALS: BP 114/67
[2018-08-24] MEDS: LEVOFLOXACIN 500MG TABLET PO SCH (20:33)
[2018-08-25] MEDS: METRONIDAZOLE 500MG TABLET PO SCH ×3 (06:46→21:21)
[2018-08-25 07:11] LABS: BASOPHILS % 0.6 % (0.0-2.0); EOSINOPHILS % 3.4 % (0.0-5.0); HEMATOCRIT. 28.5 % (42.0-52.0); HEMOGLOBIN. 9.7 g/dL (14.0-18.0); LYMPHOCYTES % 45.8 % (20.0-50.0); MEAN CORPUSCULAR HEMOGLOBIN 30.2 pg (28.0-32.0); MEAN CORPUSCULAR VOLUME 88.5 fL (80.0-94.0); MEAN PLATELET VOLUME 7.7 fl (7.4-10.4); MONOCYTES % 7.2 % (2.0-8.0); PLATELET 262 x1000/uL (130-400); RED BLOOD CELL COUNT 3.22 mill/uL (4.7-6.1); RED CELL DISTRIBUTION WIDTH 15.5 % (11.6-14.6)
[2018-08-25 08:37] VITALS: BP 109/72
[2018-08-25] MEDS: DOXYCYCLINE HYCLATE 100MG CAPSULE PO SCH ×2 (09:26→17:17)
[2018-08-25] MEDS: MAGNESIUM OXIDE 400MG TABLET PO SCH (09:26)
[2018-08-25] MEDS: TAMSULOSIN HCL 0.4MG SR CAPSULE PO SCH (09:26)
[2018-08-25] MEDS: FINASTERIDE 5MG TABLET PO SCH (09:26)
[2018-08-25] MEDS: NYSTATIN POWDER 15GM TOP SCH ×2 (09:27→20:16)
[2018-08-25] MEDS ORDERED: LEVOFLOXACIN 500MG TABLET PO SCH (11:00)
[2018-08-25] MEDS: LEVOFLOXACIN 500MG TABLET PO SCH (11:27)
[2018-08-25] MEDS: DIGOXIN 125MCG TABLET PO SCH (17:18)
[2018-08-25] MEDS ORDERED: WARFARIN SODIUM 5MG TABLET PO NR (18:00)
[2018-08-25 20:00] VITALS: BP 96/52
[2018-08-25] MEDS ORDERED: ATORVASTATIN CALCIUM 40MG TABLET PO SCH (21:00)
[2018-08-26 06:51] LABS: INR 1.8; PROTHROMBIN TIME 18.1 sec (9.1-11.1)
[2018-08-26 07:39] LABS: PHOSPHORUS 5.1 mg/dL (2.5-4.9)
[2018-08-26 08:46] VITALS: BP 116/83
[2018-08-26] MEDS: NYSTATIN POWDER 15GM TOP SCH ×2 (09:00→21:01)
[2018-08-26] MEDS: METRONIDAZOLE 500MG TABLET PO SCH ×3 (10:19→21:01)
[2018-08-26] MEDS: TAMSULOSIN HCL 0.4MG SR CAPSULE PO SCH (10:20)
[2018-08-26] MEDS: FINASTERIDE 5MG TABLET PO SCH (10:20)
[2018-08-26] MEDS: MAGNESIUM OXIDE 400MG TABLET PO SCH (10:21)
[2018-08-26] MEDS: DOXYCYCLINE HYCLATE 100MG CAPSULE PO SCH ×2 (10:35→17:50)
[2018-08-26] MEDS: LEVOFLOXACIN 500MG TABLET PO SCH (11:26)
[2018-08-26] MEDS ORDERED: WARFARIN SODIUM 7.5MG TABLET PO SCH (18:00)
[2018-08-26] MEDS ORDERED: WARFARIN SODIUM 5MG TABLET PO SCH (18:00)
[2018-08-26 20:00] VITALS: BP 102/62
[2018-08-26] MEDS: ATORVASTATIN CALCIUM 40MG TABLET PO SCH (21:01)
[2018-08-27 05:58] LABS: HEMATOCRIT 29.7 % (42.0-52.0); HEMOGLOBIN 9.9 g/dL (14.0-18.0); MEAN CORPUSCULAR HEMOGLOBIN 29.8 pg (28.0-32.0); MEAN CORPUSCULAR VOLUME 89.5 fL (80.0-94.0); PLATELET 253 x1000/uL (130-400); RED BLOOD CELL COUNT 3.32 mill/uL (4.7-6.1); RED CELL DISTRIBUTION WIDTH 16.1 % (11.6-14.6)
[2018-08-27 06:00] LABS: PROTHROMBIN TIME 19.4 sec (9.1-11.1)
[2018-08-27] MEDS: METRONIDAZOLE 500MG TABLET PO SCH ×3 (06:08→21:25)
[2018-08-27 06:48] LABS: DIGOXIN 0.3 ng/mL (0.9-2.0)
[2018-08-27 08:00] VITALS: BP 105/83
[2018-08-27] MEDS: FINASTERIDE 5MG TABLET PO SCH (09:03)
[2018-08-27] MEDS: MAGNESIUM OXIDE 400MG TABLET PO SCH (09:03)
[2018-08-27] MEDS: DOXYCYCLINE HYCLATE 100MG CAPSULE PO SCH ×2 (09:03→17:28)
[2018-08-27] MEDS: TAMSULOSIN HCL 0.4MG SR CAPSULE PO SCH (09:03)
[2018-08-27] MEDS: NYSTATIN POWDER 15GM TOP SCH ×2 (09:04→21:26)
[2018-08-27] MEDS: LEVOFLOXACIN 500MG TABLET PO SCH (11:09)
[2018-08-27] MEDS: DIGOXIN 125MCG TABLET PO SCH (17:28)
[2018-08-27] MEDS ORDERED: WARFARIN SODIUM 5MG TABLET PO NR (18:00)
[2018-08-27 20:00] VITALS: BP 102/53
[2018-08-27] MEDS: ATORVASTATIN CALCIUM 40MG TABLET PO SCH (21:25)
[2018-08-28] MEDS: METRONIDAZOLE 500MG TABLET PO SCH ×3 (06:20→21:18)
[2018-08-28 08:00] VITALS: BP_SYST 102; BP_SYST 117; BP_DIAS 66
[2018-08-28] MEDS: TAMSULOSIN HCL 0.4MG SR CAPSULE PO SCH (08:28)
[2018-08-28] MEDS: FINASTERIDE 5MG TABLET PO SCH (08:28)
[2018-08-28] MEDS: MAGNESIUM OXIDE 400MG TABLET PO SCH (08:28)
[2018-08-28] MEDS: DOXYCYCLINE HYCLATE 100MG CAPSULE PO SCH ×2 (08:28→16:34)
[2018-08-28] MEDS: NYSTATIN POWDER 15GM TOP SCH ×2 (08:28→21:19)
[2018-08-28 08:58] LABS: INR 1.9; PROTHROMBIN TIME 19.2 sec (9.1-11.1)
[2018-08-28] MEDS: LEVOFLOXACIN 500MG TABLET PO SCH (12:01)
[2018-08-28] MEDS ORDERED: WARFARIN SODIUM 3MG TABLET PO NR (18:00)
[2018-08-28 20:00] VITALS: BP 97/68
[2018-08-28] MEDS: ATORVASTATIN CALCIUM 40MG TABLET PO SCH (21:19)
[2018-08-29] MEDS: METRONIDAZOLE 500MG TABLET PO SCH ×3 (05:19→21:34)
[2018-08-29 05:55] LABS: INR 2.1
[2018-08-29 06:29] LABS: PHOSPHORUS 4.6 mg/dL (2.5-4.9)
[2018-08-29 06:41] LABS: BASOPHILS % 0.6 % (0.0-2.0); EOSINOPHILS % 5.4 % (0.0-5.0); HEMATOCRIT. 32.2 % (42.0-52.0); HEMOGLOBIN. 10.6 g/dL (14.0-18.0); LYMPHOCYTES % 47.8 % (20.0-50.0); MEAN CORPUSCULAR HEMOGLOBIN 29.7 pg (28.0-32.0); MEAN CORPUSCULAR VOLUME 90.2 fL (80.0-94.0); MEAN PLATELET VOLUME 7.7 fl (7.4-10.4); MONOCYTES % 7.9 % (2.0-8.0); NEUTROPHILS % 38.3 % (40.0-76.0); PLATELET 266 x1000/uL (130-400); RED BLOOD CELL COUNT 3.58 mill/uL (4.7-6.1); RED CELL DISTRIBUTION WIDTH 15.8 % (11.6-14.6)
[2018-08-29 08:00] VITALS: BP 119/77
[2018-08-29] MEDS: FINASTERIDE 5MG TABLET PO SCH (08:10)
[2018-08-29] MEDS: DOXYCYCLINE HYCLATE 100MG CAPSULE PO SCH ×2 (08:10→17:03)
[2018-08-29] MEDS: MAGNESIUM OXIDE 400MG TABLET PO SCH (08:10)
[2018-08-29] MEDS: TAMSULOSIN HCL 0.4MG SR CAPSULE PO SCH (08:12)
[2018-08-29] MEDS: LEVOFLOXACIN 500MG TABLET PO SCH (10:41)
[2018-08-29] MEDS: NYSTATIN POWDER 15GM TOP SCH ×2 (11:09→21:35)
[2018-08-29] MEDS: DIGOXIN 125MCG TABLET PO SCH (17:03)
[2018-08-29] MEDS ORDERED: WARFARIN SODIUM 3MG TABLET PO NR (18:00)
[2018-08-29 20:00] VITALS: BP 102/62
[2018-08-29] MEDS: ATORVASTATIN CALCIUM 40MG TABLET PO SCH (21:34)
[2018-08-30] MEDS: METRONIDAZOLE 500MG TABLET PO SCH ×3 (05:53→21:36)
[2018-08-30 07:11] LABS: INR 2.5
[2018-08-30] MEDS: NYSTATIN POWDER 15GM TOP SCH ×2 (08:00→21:37)
[2018-08-30] MEDS: DOXYCYCLINE HYCLATE 100MG CAPSULE PO SCH ×2 (08:00→17:19)
[2018-08-30] MEDS: TAMSULOSIN HCL 0.4MG SR CAPSULE PO SCH (08:00)
[2018-08-30] MEDS: MAGNESIUM OXIDE 400MG TABLET PO SCH (08:00)
[2018-08-30] MEDS: FINASTERIDE 5MG TABLET PO SCH (08:01)
[2018-08-30 08:07] VITALS: BP 105/67
[2018-08-30] MEDS: LEVOFLOXACIN 500MG TABLET PO SCH (10:33)
[2018-08-30] MEDS ORDERED: WARFARIN SODIUM 1MG TABLET PO NR (18:00)
[2018-08-30 20:00] VITALS: BP 93/50
[2018-08-30] MEDS: CARVEDILOL 3.125 MG TABLET PO SCH (21:00)
[2018-08-30] MEDS: ATORVASTATIN CALCIUM 40MG TABLET PO SCH (21:36)
[2018-08-31 06:28] LABS: INR 2.8; PROTHROMBIN TIME 27.2 sec (9.1-11.1)
[2018-08-31 06:33] LABS: BASOPHILS % 0.5 % (0.0-2.0); EOSINOPHILS % 4.1 % (0.0-5.0); HEMATOCRIT. 30.3 % (42.0-52.0); HEMOGLOBIN. 10.3 g/dL (14.0-18.0); LYMPHOCYTES % 53.9 % (20.0-50.0); MEAN CORPUSCULAR HEMOGLOBIN 30.2 pg (28.0-32.0); MEAN CORPUSCULAR VOLUME 88.6 fL (80.0-94.0); MEAN PLATELET VOLUME 7.6 fl (7.4-10.4); MONOCYTES % 7.8 % (2.0-8.0); NEUTROPHILS % 33.7 % (40.0-76.0); PLATELET 234 x1000/uL (130-400); RED BLOOD CELL COUNT 3.41 mill/uL (4.7-6.1); RED CELL DISTRIBUTION WIDTH 16.4 % (11.6-14.6)
[2018-08-31] MEDS: METRONIDAZOLE 500MG TABLET PO SCH ×3 (06:41→21:09)
[2018-08-31 07:56] VITALS: BP 108/79
[2018-08-31] MEDS: CARVEDILOL 3.125 MG TABLET PO SCH ×3 (08:36→20:43)
[2018-08-31] MEDS: DOXYCYCLINE HYCLATE 100MG CAPSULE PO SCH ×2 (08:36→17:35)
[2018-08-31] MEDS: MAGNESIUM OXIDE 400MG TABLET PO SCH (08:36)
[2018-08-31] MEDS: TAMSULOSIN HCL 0.4MG SR CAPSULE PO SCH (08:36)
[2018-08-31] MEDS: FINASTERIDE 5MG TABLET PO SCH (08:36)
[2018-08-31] MEDS: NYSTATIN POWDER 15GM TOP SCH ×2 (09:00→20:42)
[2018-08-31] MEDS: LEVOFLOXACIN 500MG TABLET PO SCH (12:24)
[2018-08-31] MEDS: DIGOXIN 125MCG TABLET PO SCH (17:35)
[2018-08-31 20:00] VITALS: BP_SYST 106; BP_SYST 112; BP_DIAS 52; BP_DIAS 55
[2018-08-31] MEDS: ATORVASTATIN CALCIUM 40MG TABLET PO SCH (20:42)
[2018-09-01] MEDS: METRONIDAZOLE 500MG TABLET PO SCH ×2 (05:33→13:31)
[2018-09-01 07:13] LABS: INR 2.4; PROTHROMBIN TIME 23.9 sec (9.1-11.1)
[2018-09-01 08:00] VITALS: BP 114/71
[2018-09-01] MEDS: FINASTERIDE 5MG TABLET PO SCH (08:16)
[2018-09-01] MEDS: DOXYCYCLINE HYCLATE 100MG CAPSULE PO SCH (08:16)
[2018-09-01] MEDS: TAMSULOSIN HCL 0.4MG SR CAPSULE PO SCH (08:16)
[2018-09-01] MEDS: MAGNESIUM OXIDE 400MG TABLET PO SCH (08:16)
[2018-09-01] MEDS: CARVEDILOL 3.125 MG TABLET PO SCH (09:00)
[2018-09-01] MEDS: NYSTATIN POWDER 15GM TOP SCH (09:00)
[2018-09-01] MEDS: LEVOFLOXACIN 500MG TABLET PO SCH (10:54)
[2018-09-01 12:49] VITALS: BP 114/71
[2018-09-01] MEDS ORDERED: WARFARIN SODIUM 2MG TABLET PO NR (18:00)
== END 2018-09-01 16:14 | DRG 94 ==
PROVIDERS: ADMIT Psychiatry & Neurology Neurology; ATTEND Family Medicine
DX: G06.1 Intraspinal abscess and granuloma (principal); N17.0 Acute kidney failure with tubular necrosis; L03.115 Cellulitis of right lower limb; M46.27 Osteomyelitis of vertebra, lumbosacral region; D68.59 Other primary thrombophilia; L03.116 Cellulitis of left lower limb; N12 Tubulo-interstitial nephritis, not specified as acute or chronic; R53.81 Other malaise; R32 Unspecified urinary incontinence; D18.00 Hemangioma unspecified site; E11.65 Type 2 diabetes mellitus with hyperglycemia; E11.621 Type 2 diabetes mellitus with foot ulcer; E66.9 Obesity, unspecified; E78.5 Hyperlipidemia, unspecified; I10 Essential (primary) hypertension; I48.2 Chronic atrial fibrillation; L97.519 Non-pressure chronic ulcer of other part of right foot with unspecified severity; M48.061 Spinal stenosis, lumbar region without neurogenic claudication; M48.04 Spinal stenosis, thoracic region; N40.0 Benign prostatic hyperplasia without lower urinary tract symptoms; M46.47 Discitis, unspecified, lumbosacral region; I87.2 Venous insufficiency (chronic) (peripheral); Z96.642 Presence of left artificial hip joint; E11.69 Type 2 diabetes mellitus with other specified complication; E87.6 Hypokalemia; R15.9 Full incontinence of feces; E11.42 Type 2 diabetes mellitus with diabetic polyneuropathy; Z79.01 Long term (current) use of anticoagulants; Z90.49 Acquired absence of other specified parts of digestive tract; Z79.899 Other long term (current) drug therapy; Z82.49 Family history of ischemic heart disease and other diseases of the circulatory system
CPT/HCPCS: 36415; 80048; 80162; 83735; 84100; 85027; 87106; 97110; 97112; 97116; 97162; 97166; 97530; 97535; A6261; J3475; J3490; J7030; J7060; A4315

== ENCOUNTER 2018-09-26 16:10 | Inpatient (IN) | payer MEDICARE, MEDICAID ==
[~2018-09-26] VITALS: Ht 182.9 cm; Wt 91.7 kg
[2018-09-26 17:00] LABS: BASOPHILS % 0.6 % (0.0-2.0); EOSINOPHILS % 1.8 % (0.0-5.0); HEMATOCRIT. 36.5 % (42.0-52.0); HEMOGLOBIN. 12.8 g/dL (14.0-18.0); LYMPHOCYTES % 39.5 % (20.0-50.0); MEAN CORPUSCULAR HEMOGLOBIN 30.6 pg (28.0-32.0); MEAN CORPUSCULAR VOLUME 87.7 fL (80.0-94.0); MEAN PLATELET VOLUME 6.7 fl (7.4-10.4); NEUTROPHILS % 53.1 % (40.0-76.0); PLATELET 484 x1000/uL (130-400); RED BLOOD CELL COUNT 4.16 mill/uL (4.7-6.1); RED CELL DISTRIBUTION WIDTH 15.6 % (11.6-14.6)
[2018-09-26 17:03] LABS: CHLORIDE 103 mEq/L (98-107)
[2018-09-26 17:05] LABS: INR 2.2; PROTHROMBIN TIME 21.7 sec (9.1-11.1)
[2018-09-26] MEDS ORDERED: ONDANSETRON HCL 4MG/2ML INJ IV PRN (18:30)
[2018-09-26] MEDS ORDERED: ACETAMINOPHEN 325MG TABLET PO PRN (18:30)
[2018-09-26] MEDS ORDERED: CEFAZOLIN 1000MG PREMIX 50 ML IV SCH (18:30)
[2018-09-26] MEDS ORDERED: IPRATROPIUM/ALBUTEROL 0.5-3(2.5)MG/3ML NEB INH PRN (18:30)
[2018-09-26] MEDS ORDERED: CEFAZOLIN 1000MG PREMIX 50 ML IV ONE (18:45)
[2018-09-27] MEDS ORDERED: DIGOXIN (01:41)
[2018-09-27] MEDS ORDERED: ATOR40TA70 MT (01:43)
[2018-09-27] MEDS ORDERED: WARF-53 PO (01:44)
[2018-09-27] MEDS ORDERED: TRAMADOL HCL/ACETAMINOPHEN 37.5/325MG TABLET PO PRN (01:52)
[2018-09-27 03:49] VITALS: BP 118/74
[2018-09-27] MEDS: CYCLOBENZAPRINE 10MG TABLET PO SCH ×3 (06:46→21:51)
[2018-09-27 07:06] LABS: PROTHROMBIN TIME 19.5 sec (9.1-11.1)
[2018-09-27 07:30] LABS: CHLORIDE 106 mEq/L (98-107)
[2018-09-27 07:31] LABS: BASOPHILS % 0.7 % (0.0-2.0); HEMATOCRIT. 32.3 % (42.0-52.0); HEMOGLOBIN. 11.3 g/dL (14.0-18.0); LYMPHOCYTES % 52.3 % (20.0-50.0); MEAN CORPUSCULAR HEMOGLOBIN 30.2 pg (28.0-32.0); MEAN CORPUSCULAR VOLUME 86.5 fL (80.0-94.0); MEAN PLATELET VOLUME 6.7 fl (7.4-10.4); MONOCYTES % 6.7 % (2.0-8.0); NEUTROPHILS % 37.3 % (40.0-76.0); PLATELET 400 x1000/uL (130-400); RED BLOOD CELL COUNT 3.74 mill/uL (4.7-6.1); RED CELL DISTRIBUTION WIDTH 15.4 % (11.6-14.6)
[2018-09-27 08:00] VITALS: BP 106/66
[2018-09-27] MEDS: FINASTERIDE 5MG TABLET PO SCH (09:00)
[2018-09-27] MEDS: CARVEDILOL 3.125 MG TABLET PO SCH ×2 (09:00→21:51)
[2018-09-27] MEDS: DOCUSATE SODIUM 100MG CAPSULE PO SCH ×2 (09:35→17:14)
[2018-09-27] MEDS: TAMSULOSIN HCL 0.4MG SR CAPSULE PO SCH (09:36)
[2018-09-27] MEDS: FUROSEMIDE 40MG/4ML VIAL IVP SCH (09:36)
[2018-09-27] MEDS: CEFAZOLIN 1000MG PREMIX 50 ML IV SCH ×3 (09:36→22:02)
[2018-09-27 11:50] LABS: COLOR URINE YELLOW (YELLOW); KETONES URINE NEGATIVE (NEGATIVE); LEUKOCYTE ESTERASE URINE NEGATIVE (NEGATIVE); NITRITE URINE NEGATIVE (NEGATIVE); OCCULT BLOOD URINE TRACE (NEGATIVE); PROTEIN URINE NEGATIVE (NEGATIVE); SPECIFIC GRAVITY URINE 1.001 (1.005-1.030); UROBILINOGEN URINE 0.2 E.U./dL (0.2-1.0)
[2018-09-27 11:51] VITALS: BP 95/60
[2018-09-27 11:51] LABS: CLARITY URINE CLEAR (CLEAR)
[2018-09-27] MEDS ORDERED: GADOBENATE DIMEGLUMINE 529 MG/ML 10ML IV ONE (11:58)
[2018-09-27 16:00] VITALS: BP 94/67
[2018-09-27] MEDS: DIGOXIN 500MCG/2ML AMP IV SCH (17:14)
[2018-09-27 20:00] VITALS: BP 99/63
[2018-09-27] MEDS: ATORVASTATIN CALCIUM 20MG TABLET PO SCH (21:49)
[2018-09-28] VITALS: BP 106/68
[2018-09-28 04:00] VITALS: BP 114/69
[2018-09-28 06:31] LABS: BASOPHILS % 0.6 % (0.0-2.0); EOSINOPHILS % 3.3 % (0.0-5.0); HEMATOCRIT. 32.2 % (42.0-52.0); HEMOGLOBIN. 11.3 g/dL (14.0-18.0); LYMPHOCYTES % 51.4 % (20.0-50.0); MEAN CORPUSCULAR HEMOGLOBIN 30.5 pg (28.0-32.0); MEAN CORPUSCULAR VOLUME 87.1 fL (80.0-94.0); MEAN PLATELET VOLUME 6.8 fl (7.4-10.4); MONOCYTES % 6.4 % (2.0-8.0); NEUTROPHILS % 38.3 % (40.0-76.0); PLATELET 397 x1000/uL (130-400); RED CELL DISTRIBUTION WIDTH 15.5 % (11.6-14.6)
[2018-09-28 06:34] LABS: INR 1.5; PROTHROMBIN TIME 15.1 sec (9.6-11.0)
[2018-09-28 06:59] LABS: CHLORIDE 104 mEq/L (98-107)
[2018-09-28] MEDS: CYCLOBENZAPRINE 10MG TABLET PO SCH ×3 (07:12→21:52)
[2018-09-28] MEDS: CEFAZOLIN 1000MG PREMIX 50 ML IV SCH ×3 (07:12→21:52)
[2018-09-28 08:00] VITALS: BP 98/63
[2018-09-28] MEDS: FUROSEMIDE 40MG/4ML VIAL IVP SCH (08:42)
[2018-09-28] MEDS: FINASTERIDE 5MG TABLET PO SCH (08:42)
[2018-09-28] MEDS: DOCUSATE SODIUM 100MG CAPSULE PO SCH ×2 (08:43→17:00)
[2018-09-28] MEDS: TAMSULOSIN HCL 0.4MG SR CAPSULE PO SCH (08:43)
[2018-09-28] MEDS: CARVEDILOL 3.125 MG TABLET PO SCH ×2 (08:53→21:00)
[2018-09-28 12:00] VITALS: BP 90/62
[2018-09-28 16:00] VITALS: BP 90/61
[2018-09-28] MEDS ORDERED: BISACODYL 5MG TABLET PO PRN (17:00)
[2018-09-28] MEDS: DIGOXIN 500MCG/2ML AMP IV SCH (17:31)
[2018-09-28] MEDS ORDERED: WARFARIN SODIUM 5MG TABLET PO NR (18:00)
[2018-09-28] MEDS ORDERED: LACTULOSE 20G/30ML UDC PO ONE (21:00)
[2018-09-28] MEDS: ATORVASTATIN CALCIUM 20MG TABLET PO SCH (21:51)
[2018-09-29] MEDS: CYCLOBENZAPRINE 10MG TABLET PO SCH ×3 (05:43→21:25)
[2018-09-29] MEDS: CEFAZOLIN 1000MG PREMIX 50 ML IV SCH (05:43)
[2018-09-29 06:14] LABS: INR 1.4; PROTHROMBIN TIME 13.8 sec (9.6-11.0)
[2018-09-29 08:00] VITALS: BP 98/65
[2018-09-29] MEDS: CARVEDILOL 3.125 MG TABLET PO SCH ×2 (08:23→21:00)
[2018-09-29] MEDS: FUROSEMIDE 40MG/4ML VIAL IVP SCH (08:26)
[2018-09-29] MEDS: TAMSULOSIN HCL 0.4MG SR CAPSULE PO SCH (09:00)
[2018-09-29] MEDS: FINASTERIDE 5MG TABLET PO SCH (09:00)
[2018-09-29] MEDS: DOCUSATE SODIUM 100MG CAPSULE PO SCH ×2 (09:00→18:17)
[2018-09-29 12:00] VITALS: BP 91/61
[2018-09-29] MEDS ORDERED: CEFAZOLIN 1000MG PREMIX 50 ML IV ONE (12:04)
[2018-09-29] MEDS ORDERED: FURO10VI3 PO (12:41)
[2018-09-29] MEDS ORDERED: DIGO250A8 PO (12:41)
[2018-09-29] MEDS ORDERED: CYCL10TA7 PO (12:41)
[2018-09-29] MEDS ORDERED: COR3 PO (12:41)
[2018-09-29 16:00] VITALS: BP 95/68
[2018-09-29] MEDS ORDERED: WARFARIN SODIUM 5MG TABLET PO SCH (18:00)
[2018-09-29] MEDS ORDERED: DIGOXIN 125MCG TABLET PO SCH (18:30)
[2018-09-29 20:00] VITALS: BP 100/60
[2018-09-29] MEDS: ATORVASTATIN CALCIUM 20MG TABLET PO SCH (21:25)
[2018-09-30] VITALS: BP 97/66
[2018-09-30 04:00] VITALS: BP 100/60
[2018-09-30] MEDS: CYCLOBENZAPRINE 10MG TABLET PO SCH (05:25)
[2018-09-30 06:12] LABS: INR 1.3; PROTHROMBIN TIME 13.1 sec (9.6-11.0)
[2018-09-30 08:00] VITALS: BP 105/81
[2018-09-30 08:19] VITALS: BP 121/86
[2018-09-30] MEDS: FINASTERIDE 5MG TABLET PO SCH (08:54)
[2018-09-30] MEDS: TAMSULOSIN HCL 0.4MG SR CAPSULE PO SCH (08:54)
[2018-09-30] MEDS: FUROSEMIDE 40MG/4ML VIAL IVP SCH (08:54)
[2018-09-30] MEDS: DOCUSATE SODIUM 100MG CAPSULE PO SCH (08:54)
[2018-09-30] MEDS: CARVEDILOL 3.125 MG TABLET PO SCH ×2 (08:54→08:55)
== END 2018-09-30 09:45 | disposition home health service (06) | DRG 602 ==
LOC: ER 16:10 → 6EST 18:43 → EDBEDREQ 18:45 → EDBEDREQSVC 18:45 → EDBEDREQ 18:46 → ENRESERV 20:56
PROVIDERS: ADMIT Internal Medicine Critical Care Medicine; ATTEND Internal Medicine Critical Care Medicine
PROC: 0HDMXZZ Extraction of Right Foot Skin, External Approach (ICD-10-PCS; principal; 2018-09-27)
DX: L03.115 Cellulitis of right lower limb (principal); J96.00 Acute respiratory failure, unspecified whether with hypoxia or hypercapnia; I50.43 Acute on chronic combined systolic (congestive) and diastolic (congestive) heart failure; J84.9 Interstitial pulmonary disease, unspecified; L03.116 Cellulitis of left lower limb; I11.0 Hypertensive heart disease with heart failure; I48.91 Unspecified atrial fibrillation; E78.5 Hyperlipidemia, unspecified; L85.3 Xerosis cutis; I48.2 Chronic atrial fibrillation; E11.42 Type 2 diabetes mellitus with diabetic polyneuropathy; I87.2 Venous insufficiency (chronic) (peripheral); M20.42 Other hammer toe(s) (acquired), left foot; L84 Corns and callosities; I95.9 Hypotension, unspecified; M20.41 Other hammer toe(s) (acquired), right foot; M21.612 Bunion of left foot; M21.611 Bunion of right foot; R20.2 Paresthesia of skin; L57.0 Actinic keratosis; N40.1 Benign prostatic hyperplasia with lower urinary tract symptoms; R33.8 Other retention of urine; R79.1 Abnormal coagulation profile; Z96.642 Presence of left artificial hip joint; R32 Unspecified urinary incontinence; R15.9 Full incontinence of feces; Z86.61 Personal history of infections of the central nervous system; Z79.01 Long term (current) use of anticoagulants; Z88.2 Allergy status to sulfonamides; Z88.1 Allergy status to other antibiotic agents; Z79.899 Other long term (current) drug therapy; Z90.49 Acquired absence of other specified parts of digestive tract
CPT/HCPCS: 36415; 71045; 72158; 80048; 85651; 93970; 96365; 97116; 97162; 97166; 97530; 99285; A9577; J0690; J1160; J1940; J7040; A4315

== ENCOUNTER → 2022-05-06 | Outpatient (CLI) | payer MEDICARE, MEDICAID ==
[~2022-05-06] MED LIST changes: +COR3 PO; +CYCL10TA21 PO; +DIGO250A8 PO; +FURO10VI3 PO; +WARF-53 PO
== END | disposition home or self-care (01) ==
LOC: MRI 08:28
PROVIDERS: ATTEND Internal Medicine Critical Care Medicine
DX: M48.03 Spinal stenosis, cervicothoracic region (principal); M24.28 Disorder of ligament, vertebrae; M47.22 Other spondylosis with radiculopathy, cervical region; M50.11 Cervical disc disorder with radiculopathy, high cervical region
CPT/HCPCS: 72141; 72146

== ENCOUNTER → 2023-02-11 | Outpatient (CLI) | payer MEDICARE, MEDICAID | END | disposition home or self-care (01) | LOC: MRI 08:30 | PROVIDERS: ATTEND Neurological Surgery | DX: M19.011 Primary osteoarthritis, right shoulder (principal); S46.911A Strain of unspecified muscle, fascia and tendon at shoulder and upper arm level, right arm, initial encounter; M50.323 Other cervical disc degeneration at C6-C7 level; M47.812 Spondylosis without myelopathy or radiculopathy, cervical region; M48.02 Spinal stenosis, cervical region; M25.711 Osteophyte, right shoulder; X58.XXXA Exposure to other specified factors, initial encounter; Y93.89 Activity, other specified; Y92.89 Other specified places as the place of occurrence of the external cause; Y99.8 Other external cause status | CPT/HCPCS: 72141; 73221 ==

== ENCOUNTER → 2023-03-12 | Outpatient (CLI) | payer MEDICARE, MEDICAID ==
[2023-03-12 09:22] LABS: BASOPHILS % 0.6 % (0.0-2.0); EOSINOPHILS % 1.6 % (0.0-5.0); HEMATOCRIT. 46.3 % (42.0-52.0); HEMOGLOBIN. 15.8 g/dL (14.0-18.0); LYMPHOCYTES % 31.3 % (20.0-50.0); MEAN CORPUSCULAR HEMOGLOBIN 31.7 pg (28.0-32.0); MEAN CORPUSCULAR HGB CONC 34.2 g/dL (31.0-37.0); MEAN CORPUSCULAR VOLUME 92.6 fL (80.0-94.0); MEAN PLATELET VOLUME 7.3 fl (7.4-10.4); MONOCYTES % 5.5 % (2.0-8.0); PLATELET 244 x1000/uL (130-400); WHITE BLOOD COUNT 5.7 x1000/uL (4.5-11.0)
[2023-03-12 09:36] LABS: CHLORIDE 110 mEq/L (98-107); INDEX HEMOLYSI 1 (1-3); INDEX ICTERIC 1 (1-4); INDEX LIPEMIC 1 (1-3); POTASSIUM 4.6 mEq/L (3.5-5.1); SODIUM 139 mEq/L (136-145)
[2023-03-12 09:44] LABS: ALANINE AMINOTRANSFERASE 26 IU/L (13-61); ALBUMIN 3.9 g/dL (3.4-5.0); ASPARTATE AMINOTRANSFERASE 14 IU/L (15-37); CALCIUM 8.2 mg/dL (8.5-10.1); CARBON DIOXIDE 28 mEq/L (21-32); CREATININE 0.8 mg/dL (0.6-1.3); GLUCOSE 120 mg/dL (70-105); PROTEIN TOTAL 6.9 g/dL (6.0-8.3); UREA NITROGEN BLOOD 16 mg/dL (7-21)
[2023-03-12 09:47] LABS: PARTIAL THROMBOPLASTIN TIME 28.9 sec (23.4-31.0); PROTHROMBIN TIME 10.9 sec (9.6-11.0)
== END | disposition home or self-care (01) ==
LOC: LAB 08:08
PROVIDERS: ATTEND Internal Medicine Critical Care Medicine
DX: Z01.818 Encounter for other preprocedural examination (principal); E88.81 Metabolic syndrome and other insulin resistance; D68.2 Hereditary deficiency of other clotting factors; D64.9 Anemia, unspecified
CPT/HCPCS: 36415; 71045; 80053; 85025

== ENCOUNTER 2023-03-22 19:08 | Inpatient (IN) | payer MEDICARE, MEDICAID ==
[~2023-03-22] VITALS: Ht 185.4 cm; Wt 117.7 kg
[~2023-03-22 19:08] MED LIST changes: +APIX5TAB PO; -FURO10VI3 PO; +TRAM50TA3 PO; -WARF-53 PO
[2023-03-22 20:00] VITALS: BP 124/85; PULSE 101; RESP 19; TEMP 98.1
[2023-03-22 20:42] VITALS: BP 124/85; PULSE 101; RESP 19; TEMP 98.1
[2023-03-22] MEDS ORDERED: ACETAMINOPHEN 325MG TABLET PO PRN (22:30)
[2023-03-22] MEDS ORDERED: ONDANSETRON HCL 4MG/2ML INJ IV PRN (22:30)
[2023-03-22] MEDS ORDERED: NALOXONE HCL 0.4 MG/ML 1ML VIAL IV PRN (22:30)
[2023-03-22] MEDS ORDERED: HYDROCODONE/ACETAMINOPHEN 10/325MG TABLET PO PRN ×2 (22:30)
[2023-03-22] MEDS: ATORVASTATIN CALCIUM 40MG TABLET PO SCH (23:59)
[2023-03-23] MEDS: CARVEDILOL 3.125 MG TABLET PO SCH ×4 (00:02→21:59)
[2023-03-23 07:13] LABS: BASOPHILS % 0.4 % (0.0-2.0); EOSINOPHILS % 0.9 % (0.0-5.0); HEMATOCRIT. 34.3 % (42.0-52.0); LYMPHOCYTES % 16.1 % (20.0-50.0); MEAN CORPUSCULAR HEMOGLOBIN 32.3 pg (28.0-32.0); MEAN CORPUSCULAR HGB CONC 35.1 g/dL (31.0-37.0); MEAN CORPUSCULAR VOLUME 92.1 fL (80.0-94.0); MEAN PLATELET VOLUME 7.7 fl (7.4-10.4); MONOCYTES % 7.3 % (2.0-8.0); NEUTROPHILS % 75.3 % (40.0-76.0); PLATELET 261 x1000/uL (130-400); RED BLOOD CELL COUNT 3.72 mill/uL (4.7-6.1); RED CELL DISTRIBUTION WIDTH 13.9 % (11.6-14.6); WHITE BLOOD COUNT 8.8 x1000/uL (4.5-11.0)
[2023-03-23 07:40] LABS: CHLORIDE 108 mEq/L (98-107); INDEX HEMOLYSI 1 (1-3); INDEX ICTERIC 1 (1-4); INDEX LIPEMIC 1 (1-3); POTASSIUM 4.8 mEq/L (3.5-5.1); SODIUM 141 mEq/L (136-145)
[2023-03-23 08:00] VITALS: BP 132/79; PULSE 97; RESP 18; TEMP 97.9
[2023-03-23 08:00] LABS: ALANINE AMINOTRANSFERASE 15 IU/L (13-61); ALBUMIN 2.6 g/dL (3.4-5.0); ASPARTATE AMINOTRANSFERASE 20 IU/L (15-37); BILIRUBIN TOTAL 1.3 mg/dL (0.1-1.0); CALCIUM 7.7 mg/dL (8.5-10.1); CARBON DIOXIDE 29 mEq/L (21-32); CREATININE 0.7 mg/dL (0.6-1.3); GLUCOSE 158 mg/dL (70-105); PROTEIN TOTAL 5.8 g/dL (6.0-8.3); UREA NITROGEN BLOOD 36 mg/dL (7-21)
[2023-03-23] MEDS: TAMSULOSIN HCL 0.4MG SR CAPSULE PO SCH (08:23)
[2023-03-23] MEDS: FINASTERIDE 5MG TABLET PO SCH (08:24)
[2023-03-23] MEDS: POLYETHYLENE GLYCOL 3350 (17GM) 1 DOSE PACK PO SCH (08:24)
[2023-03-23] MEDS: LACTULOSE 20G/30ML UDC PO SCH ×2 (08:33→09:02)
[2023-03-23] MEDS ORDERED: APIXABAN 5 MG TABLET PO SCH (09:00)
[2023-03-23] MEDS ORDERED: DOCUSATE SODIUM 250MG CAPSULE PO SCH (09:00)
[2023-03-23] MEDS ORDERED: ASPIRIN 81MG TABLET PO SCH (09:00)
[2023-03-23] MEDS: APIXABAN 5 MG TABLET PO SCH (15:37)
[2023-03-23] MEDS ORDERED: BISACODYL 10MG SUPP PR PRN (16:00)
[2023-03-23] MEDS: DOCUSATE SODIUM 100MG CAPSULE PO SCH (16:44)
[2023-03-23 17:56] LABS: BASOPHILS % 0.2 % (0.0-2.0); EOSINOPHILS % 1.1 % (0.0-5.0); HEMATOCRIT. 33.2 % (42.0-52.0); HEMOGLOBIN. 11.4 g/dL (14.0-18.0); LYMPHOCYTES % 29.7 % (20.0-50.0); MEAN CORPUSCULAR HEMOGLOBIN 31.7 pg (28.0-32.0); MEAN CORPUSCULAR HGB CONC 34.4 g/dL (31.0-37.0); MEAN CORPUSCULAR VOLUME 92.3 fL (80.0-94.0); MEAN PLATELET VOLUME 7.2 fl (7.4-10.4); MONOCYTES % 8.6 % (2.0-8.0); NEUTROPHILS % 60.4 % (40.0-76.0); PLATELET 270 x1000/uL (130-400); RED CELL DISTRIBUTION WIDTH 13.9 % (11.6-14.6); WHITE BLOOD COUNT 10.4 x1000/uL (4.5-11.0)
[2023-03-23] MEDS: METOCLOPRAMIDE HCL 10MG/2ML VIAL IV SCH (18:00)
[2023-03-23] MEDS: DIGOXIN 125MCG TABLET PO SCH (18:00)
[2023-03-23 20:00] VITALS: BP 121/77; PULSE 65; RESP 18; TEMP 96.9
[2023-03-23] MEDS ORDERED: SENNOSIDES 8.6MG TABLET PO SCH (21:00)
[2023-03-23] MEDS: ATORVASTATIN CALCIUM 40MG TABLET PO SCH (21:59)
[2023-03-23] MEDS: PANTOPRAZOLE SODIUM 40 MG/VIAL IV SCH (22:00)
[2023-03-24] MEDS: METOCLOPRAMIDE HCL 10MG/2ML VIAL IV SCH ×3 (00:19→12:22)
[2023-03-24 07:59] LABS: BASOPHILS % 0.5 % (0.0-2.0); EOSINOPHILS % 3.7 % (0.0-5.0); HEMATOCRIT. 27.1 % (42.0-52.0); HEMOGLOBIN. 9.3 g/dL (14.0-18.0); LYMPHOCYTES % 23.9 % (20.0-50.0); MEAN CORPUSCULAR HEMOGLOBIN 31.8 pg (28.0-32.0); MEAN CORPUSCULAR HGB CONC 34.5 g/dL (31.0-37.0); MEAN CORPUSCULAR VOLUME 92.2 fL (80.0-94.0); MEAN PLATELET VOLUME 7.5 fl (7.4-10.4); MONOCYTES % 7.2 % (2.0-8.0); NEUTROPHILS % 64.7 % (40.0-76.0); PLATELET 249 x1000/uL (130-400); RED BLOOD CELL COUNT 2.94 mill/uL (4.7-6.1); WHITE BLOOD COUNT 8.9 x1000/uL (4.5-11.0)
[2023-03-24 08:00] VITALS: BP 108/71; PULSE 91; RESP 18; TEMP 97.9
[2023-03-24 08:49] LABS: CHLORIDE 106 mEq/L (98-107); INDEX HEMOLYSI 1 (1-3); INDEX ICTERIC 1 (1-4); INDEX LIPEMIC 1 (1-3); POTASSIUM 4.1 mEq/L (3.5-5.1); SODIUM 136 mEq/L (136-145)
[2023-03-24 08:51] LABS: CALCIUM 7.9 mg/dL (8.5-10.1); CARBON DIOXIDE 25 mEq/L (21-32); UREA NITROGEN BLOOD 46 mg/dL (7-21)
[2023-03-24 08:54] LABS: CREATININE 0.7 mg/dL (0.6-1.3); GLUCOSE 125 mg/dL (70-105); IRON 48 ug/dL (50-175); TOTAL IRON BINDING CAPACITY 149 ug/dL (250-450)
[2023-03-24 08:57] LABS: VITAMIN B12 SERUM 162 pg/mL (211-911)
[2023-03-24] MEDS: LACTULOSE 20G/30ML UDC PO SCH ×2 (09:00→17:00)
[2023-03-24] MEDS: CARVEDILOL 3.125 MG TABLET PO SCH (09:00)
[2023-03-24] MEDS: POLYETHYLENE GLYCOL 3350 (17GM) 1 DOSE PACK PO SCH (09:29)
[2023-03-24] MEDS: TAMSULOSIN HCL 0.4MG SR CAPSULE PO SCH (09:29)
[2023-03-24] MEDS: APIXABAN 5 MG TABLET PO SCH ×2 (09:30→17:34)
[2023-03-24] MEDS: DOCUSATE SODIUM 100MG CAPSULE PO SCH ×2 (09:30→17:34)
[2023-03-24] MEDS: PANTOPRAZOLE SODIUM 40 MG/VIAL IV SCH (09:30)
[2023-03-24] MEDS: FINASTERIDE 5MG TABLET PO SCH (09:30)
[2023-03-24] MEDS ORDERED: DOCUSATE SODIUM 250MG CAPSULE PO PRN (11:00)
[2023-03-24 14:27] LABS: FERRITIN 130 ng/mL (22-322)
[2023-03-24] MEDS: DIGOXIN 125MCG TABLET PO SCH (18:06)
[2023-03-24 20:00] VITALS: BP 116/62; PULSE 68; RESP 20; TEMP 96.6
[2023-03-24] MEDS ORDERED: PANTOPRAZOLE SODIUM 40 MG/VIAL IV SCH (21:00)
[2023-03-24 22:43] LABS: BG BASE EXCESS -10.3 mmol/L (-2.0-2.0); BG CARBOXYHEMOGLOBIN 0.1 % (0.5-1.5); BG DEOXYHEMOGLOBIN 1.3 % (0.0-5.0); BG FRACTION INSPIRED OXYGEN 60; BG HCO3 ACT 11.4 mmol/L (22.0-26.0); BG METHEMOGLOBIN 0.2 % (0.0-1.5); BG OXYGEN SATURATION 98.7 % (92.0-98.5); BG OXYHEMOGLOBIN 98.4 % (94.0-97.0); BG PCO2 15.2 mmHg (35.0-45.0); BG PH 7.494 (7.350-7.450); BG PO2 163.3 mmHg (75.0-100.0); BG SAMPLE SITE RIGHT RADIAL; BG VENT MODE MASK - SIMPLE
[2023-03-24] MEDS ORDERED: SODIUM CHLORIDE 0.9% 500 ML IV ONE (23:00)
[2023-03-24] MEDS ORDERED: SODIUM CHLORIDE 0.9% 1,000 ML IV SCH (23:30)
[2023-03-25] MEDS ORDERED: CEFAZOLIN 1000MG PREMIX 50 ML IV SCH (07:30)
[2023-03-30] MEDS ORDERED: DIGO125T2 PO (22:39)
[2023-03-30] MEDS ORDERED: APIX5TAB PO (22:39)
[2023-03-30] MEDS ORDERED: FURO40TA5 PO (22:39)
== END 2023-03-25 00:05 | disposition short-term general hospital (02) | DRG 553 ==
PROVIDERS: ADMIT Psychiatry & Neurology Neurology; ATTEND Internal Medicine
PROC: XW0G886 Introduction of Mineral-based Topical Hemostatic Agent into Upper GI, Via Natural or Artificial Opening Endoscopic, New Technology Group 6 (ICD-10-PCS; principal; 2023-03-25)
PROC: 0W3P8ZZ Control Bleeding in Gastrointestinal Tract, Via Natural or Artificial Opening Endoscopic (ICD-10-PCS; 2023-03-25)
DX: M16.11 Unilateral primary osteoarthritis, right hip (principal); E43 Unspecified severe protein-calorie malnutrition; G06.2 Extradural and subdural abscess, unspecified; K26.4 Chronic or unspecified duodenal ulcer with hemorrhage; J84.9 Interstitial pulmonary disease, unspecified; K22.10 Ulcer of esophagus without bleeding; Z96.641 Presence of right artificial hip joint; D64.9 Anemia, unspecified; G47.33 Obstructive sleep apnea (adult) (pediatric); I48.91 Unspecified atrial fibrillation; N40.0 Benign prostatic hyperplasia without lower urinary tract symptoms; E53.8 Deficiency of other specified B group vitamins; F39 Unspecified mood [affective] disorder; F41.9 Anxiety disorder, unspecified; I11.0 Hypertensive heart disease with heart failure; I50.9 Heart failure, unspecified; I87.2 Venous insufficiency (chronic) (peripheral); I95.9 Hypotension, unspecified; R19.5 Other fecal abnormalities; Z20.822 Contact with and (suspected) exposure to COVID-19; I95.1 Orthostatic hypotension; K59.00 Constipation, unspecified; M48.02 Spinal stenosis, cervical region; Z79.01 Long term (current) use of anticoagulants; Z86.61 Personal history of infections of the central nervous system; Z87.19 Personal history of other diseases of the digestive system; Z88.1 Allergy status to other antibiotic agents; Z88.2 Allergy status to sulfonamides; Z90.49 Acquired absence of other specified parts of digestive tract; Z91.81 History of falling; Z79.899 Other long term (current) drug therapy; Z68.34 Body mass index [BMI] 34.0-34.9, adult
CPT/HCPCS: 36415; 36600; 80048; 80053; 82375; 82607; 82728; 82746; 82805; 82962; 83540; 83550; 85025; 85044; 87426; 92523; 93970; 97110; 97116; 97162; 97166; 97530; 97535; A6261; C9113; J0690; J2405; J2765

== ENCOUNTER → 2023-04-19 | Outpatient (CLI) | payer MEDICARE, MEDICAID ==
[~2023-04-19] MED LIST changes: +APIX2.5T MT; -COR3 PO; +DIGO125T2 PO; -DIGO250A8 PO; +FURO40TA5 PO; +LIP40 PO; +OMEP20CA14 PO; +TAMS-11 PO; -TAMS0.4C31 PO
== END | disposition home or self-care (01) ==
LOC: RAD 12:42
DX: M16.11 Unilateral primary osteoarthritis, right hip (principal)
CPT/HCPCS: 73502

== ENCOUNTER → 2023-07-28 | Outpatient (CLI) | payer MEDICARE, MEDICAID | END | disposition home or self-care (01) | LOC: RAD 10:25 | DX: M16.0 Bilateral primary osteoarthritis of hip (principal); M47.816 Spondylosis without myelopathy or radiculopathy, lumbar region | CPT/HCPCS: 73521 ==

== ENCOUNTER → 2023-12-17 | Outpatient (CLI) | payer MEDICARE, MEDICAID | END | disposition home or self-care (01) | LOC: RADONC 11:02 | DX: M19.012 Primary osteoarthritis, left shoulder (principal); M19.011 Primary osteoarthritis, right shoulder | CPT/HCPCS: 73030 ==

== ENCOUNTER → 2024-04-11 | Outpatient (CLI) | payer MEDICARE, MEDICAID | END | disposition home or self-care (01) | LOC: MRI 07:16 | PROVIDERS: ATTEND Neurological Surgery | DX: M51.24 Other intervertebral disc displacement, thoracic region (principal); M48.04 Spinal stenosis, thoracic region; M50.223 Other cervical disc displacement at C6-C7 level; M48.02 Spinal stenosis, cervical region | CPT/HCPCS: 72141; 72146 ==

== ENCOUNTER → 2024-04-19 | Outpatient (CLI) | payer MEDICARE, MEDICAID ==
[~2024-04-19] MED LIST changes: -APIX2.5T MT; +CARV3.1242 PO; -CYCL10TA21 PO; -DIGO125T2 PO; +DIGO125T80 PO; +DOCU250C14 PO; -FURO40TA5 PO; -LIP40 PO; -OMEP20CA14 PO; -TRAM50TA3 PO
[2024-04-19 11:32] LABS: BASOPHILS % 1.1 % (0.0-2.0); EOSINOPHILS % 1.7 % (0.0-5.0); HEMATOCRIT. 47.6 % (42.0-52.0); HEMOGLOBIN. 15.7 g/dL (14.0-18.0); MEAN CORPUSCULAR HEMOGLOBIN 30.1 pg (28.0-32.0); MEAN CORPUSCULAR HGB CONC 32.9 g/dL (31.0-37.0); MEAN CORPUSCULAR VOLUME 91.3 fL (80.0-94.0); MEAN PLATELET VOLUME 7.2 fl (7.4-10.4); MONOCYTES % 6.9 % (2.0-8.0); NEUTROPHILS % 53.3 % (40.0-76.0); PLATELET 263 x1000/uL (130-400); RED BLOOD CELL COUNT 5.22 mill/uL (4.7-6.1); RED CELL DISTRIBUTION WIDTH 15.1 % (11.6-14.6); WHITE BLOOD COUNT 6.6 x1000/uL (4.5-11.0)
[2024-04-19 11:37] LABS: CLARITY URINE CLEAR (CLEAR); COLOR URINE YELLOW (YELLOW); GLUCOSE URINE NEGATIVE (NEGATIVE); KETONES URINE NEGATIVE (NEGATIVE); LEUKOCYTE ESTERASE URINE NEGATIVE (NEGATIVE); NITRITE URINE NEGATIVE (NEGATIVE); OCCULT BLOOD URINE NEGATIVE (NEGATIVE); PH URINE 5.5 (4.5-8.0); PROTEIN URINE TRACE (NEGATIVE); SPECIFIC GRAVITY URINE 1.023 (1.005-1.030)
[2024-04-19 11:38] LABS: CHLORIDE 109 mEq/L (98-107); POTASSIUM 4.9 mEq/L (3.5-5.1); SODIUM 140 mEq/L (136-145)
[2024-04-19 11:39] LABS: CARBON DIOXIDE 28 mEq/L (21-32)
[2024-04-19 11:40] LABS: CALCIUM 9.3 mg/dL (8.7-10.4)
[2024-04-19 11:44] LABS: GLUCOSE 119 mg/dL (70-105)
[2024-04-19 11:45] LABS: UREA NITROGEN BLOOD 14 mg/dL (9-23)
[2024-04-19 11:46] LABS: ALANINE AMINOTRANSFERASE 12 IU/L (10-49); ALBUMIN 4.5 g/dL (3.2-4.8); ASPARTATE AMINOTRANSFERASE 18 IU/L (<34)
[2024-04-19 11:47] LABS: BILIRUBIN TOTAL 1.5 mg/dL (0.1-1.0); PROTEIN TOTAL 7.4 g/dL (6.0-8.3)
[2024-04-19 11:54] LABS: INR 0.9; PARTIAL THROMBOPLASTIN TIME 28.1 sec (23.4-31.0); PROTHROMBIN TIME 10.6 sec (9.6-11.0)
[2024-04-19 12:09] LABS: MUCUS URINE 1+ /lpf (NONE/TRACE); SQUAMOUS EPITHELIAL CELL URINE RARE /lpf (RARE/1+)
[2024-04-19 12:10] LABS: BACTERIA URINE NONE SEEN; RBC URINE NONE SEEN /hpf (0-2); WBC URINE 0-2 /hpf (0-2)
== END | disposition home or self-care (01) ==
LOC: LAB 10:06
PROVIDERS: ATTEND Internal Medicine Critical Care Medicine
DX: Z01.818 Encounter for other preprocedural examination (principal); Z79.899 Other long term (current) drug therapy
CPT/HCPCS: 36415; 71046; 80053; 81003; 85025

== ENCOUNTER 2024-04-24 08:01 | Inpatient (IN) | payer MEDICARE, MEDICAID ==
[~2024-04-24] VITALS: Ht 182.9 cm; Wt 272.2 kg
[2024-04-24] VITALS (31 sets, daily range): BP systolic 106–148; BP diastolic 67–97; PULSE 64–98; RESP 12–21; TEMP 36.44736–36.50292; O2SAT 99–100
[~2024-04-24 08:01] MED LIST changes: -DOCU250C14 PO; +LACTATED RINGERS 1,000 ML IV SCH
[2024-04-24 08:42] LABS: CHLORIDE 107 mEq/L (98-107); POTASSIUM 4.5 mEq/L (3.5-5.1); SODIUM 139 mEq/L (136-145)
[2024-04-24 08:43] LABS: CARBON DIOXIDE 25 mEq/L (21-32)
[2024-04-24 08:44] LABS: CALCIUM 9.4 mg/dL (8.7-10.4)
[2024-04-24 08:48] LABS: CREATININE 0.9 mg/dL (0.6-1.3); GLUCOSE 131 mg/dL (70-105); UREA NITROGEN BLOOD 18 mg/dL (9-23)
[2024-04-24 08:49] LABS: PARTIAL THROMBOPLASTIN TIME 28.9 sec (23.4-31.0); PROTHROMBIN TIME 11.2 sec (9.6-11.0)
[2024-04-24 08:55] LABS: CLARITY URINE CLEAR (CLEAR); COLOR URINE YELLOW (YELLOW); GLUCOSE URINE NEGATIVE (NEGATIVE); KETONES URINE NEGATIVE (NEGATIVE); LEUKOCYTE ESTERASE URINE NEGATIVE (NEGATIVE); NITRITE URINE NEGATIVE (NEGATIVE); OCCULT BLOOD URINE NEGATIVE (NEGATIVE); PH URINE 5.5 (4.5-8.0); PROTEIN URINE 1+ (NEGATIVE); SPECIFIC GRAVITY URINE 1.025 (1.005-1.030)
[2024-04-24 08:59] LABS: BASOPHILS % 0.6 % (0.0-2.0); EOSINOPHILS % 1.1 % (0.0-5.0); HEMATOCRIT. 46.9 % (42.0-52.0); HEMOGLOBIN. 15.8 g/dL (14.0-18.0); MEAN CORPUSCULAR HEMOGLOBIN 30.9 pg (28.0-32.0); MEAN CORPUSCULAR HGB CONC 33.6 g/dL (31.0-37.0); MEAN CORPUSCULAR VOLUME 92.1 fL (80.0-94.0); MEAN PLATELET VOLUME 7.6 fl (7.4-10.4); MONOCYTES % 5.1 % (2.0-8.0); NEUTROPHILS % 71.2 % (40.0-76.0); PLATELET 239 x1000/uL (130-400); RED CELL DISTRIBUTION WIDTH 14.7 % (11.6-14.6); WHITE BLOOD COUNT 6.3 x1000/uL (4.5-11.0)
[2024-04-24] MEDS: SODIUM CHLORIDE 0.9% 1,000 ML IV SCH (09:21)
[2024-04-24 09:34] LABS: BACTERIA URINE NONE SEEN; CALCIUM OXALATE CRYSTALS URINE 1+ /lpf; RBC URINE 0-2 /hpf (0-2); SQUAMOUS EPITHELIAL CELL URINE RARE /lpf (RARE/1+); WBC URINE 0-2 /hpf (0-2); YEAST URINE NONE SEEN
[2024-04-24] MEDS ORDERED: LIDOCAINE HCL/EPINEPHRINE 1%-EPI 1:100,000 20ML VIAL ONE ×2 (11:03→12:37)
[2024-04-24] MEDS ORDERED: GENTAMICIN SULF 40MG/ML 2ML VIAL ONE (11:03)
[2024-04-24] MEDS ORDERED: THROMBIN (BOVINE) 5000 UNITS/VIAL TOP ONE (11:03)
[2024-04-24] MEDS ORDERED: SUCCINYLCHOLINE CHLORIDE 200MG/10ML IV ONE (11:28)
[2024-04-24] MEDS ORDERED: PROPOFOL 200MG/20ML VIAL IV ONE ×2 (11:29→16:19)
[2024-04-24] MEDS ORDERED: FENTANYL CITRATE/PF 50MCG/ML 2ML VIAL ONE ×3 (11:29→14:14)
[2024-04-24] MEDS ORDERED: PHENYLEPHRINE HCL 10MG/ML 1ML IV ONE ×2 (11:29→15:41)
[2024-04-24] MEDS ORDERED: NICARDIPINE 40MG/200ML PREMIX 200 ML IV PRN (12:00)
[2024-04-24] MEDS ORDERED: NITROGLYCERIN 50MG PREMIX 250 ML IV PRN (12:00)
[2024-04-24] MEDS ORDERED: ROCURONIUM BROMIDE 10MG/ML VIAL 5ML IV ONE ×2 (12:12→15:07)
[2024-04-24] MEDS ORDERED: EPHEDRINE SULFATE 50MG/ML VIAL ONE (14:14)
[2024-04-24] MEDS ORDERED: HYDROMORPHONE HCL/PF 1MG/ML INJ ONE ×2 (15:40→15:56)
[2024-04-24] MEDS ORDERED: PROPOFOL 10MG/ML 100ML 100 ML IV ONE (16:24)
[2024-04-24] MEDS ORDERED: FENTANYL 2500MCG/250ML PMX 250 ML IV PRN (17:15)
[2024-04-24] MEDS ORDERED: FENTANYL 2500MCG/250ML PMX 250 ML IV SCH (17:45)
[2024-04-24] MEDS ORDERED: IPRATROPIUM/ALBUTEROL 0.5-3(2.5)MG/3ML NEB HHN PRN (17:45)
[2024-04-24] MEDS: DEXAMETHASONE 4MG/ML 1ML VIAL IV SCH (18:41)
[2024-04-24] MEDS: DEXT 5%/LACTATED RINGERS 1,000 ML IV SCH (18:41)
[2024-04-24] MEDS: PANTOPRAZOLE SODIUM 40 MG/VIAL IV SCH (18:41)
[2024-04-24] MEDS: FENTANYL CITRATE 2,500 MCG in SODIUM CHLORIDE 0.9% 200 ML IV PRN (18:41)
[2024-04-24 18:57] LABS: BG BASE EXCESS -3.2 mmol/L (-2.0-3.0); BG CARBOXYHEMOGLOBIN 0.2 % (0.5-1.5); BG FRACTION INSPIRED OXYGEN 100; BG HCO3 ACT 23.5 mmol/L (21.0-28.0); BG METHEMOGLOBIN 0.2 % (0.5-1.5); BG OXYHEMOGLOBIN 99.6 % (94.0-98.0); BG PCO2 48.1 mmHg (35.0-48.0); BG PH 7.307 (7.350-7.450); BG PO2 449.8 mmHg (83.0-108.0); BG SAMPLE SITE ALINE; BG TOTAL HEMOGLOBIN 15.6 g/dL (13.5-17.5); BG VENT MODE VENT - AC
[2024-04-24] MEDS: CEFAZOLIN 1000MG PREMIX 50ML IV SCH (20:18)
[2024-04-24] MEDS: PROPOFOL 10MG/ML 100ML 100 ML IV PRN (20:51)
[2024-04-24] MEDS ORDERED: CEFAZOLIN SODIUM 1000MG/VIAL IV SCH (22:00)
[2024-04-25] VITALS (105 sets, daily range): BP systolic 98–174; BP diastolic 63–106; PULSE 58–136; RESP 10–28; TEMP 36.6696–37.16964; O2SAT 0–100
[2024-04-25 05:54] LABS: HEMATOCRIT. 42.1 % (42.0-52.0); HEMOGLOBIN. 14.5 g/dL (14.0-18.0); MEAN CORPUSCULAR HEMOGLOBIN 31.7 pg (28.0-32.0); MEAN CORPUSCULAR HGB CONC 34.4 g/dL (31.0-37.0); MEAN PLATELET VOLUME 7.7 fl (7.4-10.4); PLATELET 213 x1000/uL (130-400); RED BLOOD CELL COUNT 4.58 mill/uL (4.7-6.1); RED CELL DISTRIBUTION WIDTH 14.6 % (11.6-14.6); WHITE BLOOD COUNT 6.9 x1000/uL (4.5-11.0)
[2024-04-25 05:56] LABS: CHLORIDE 109 mEq/L (98-107); POTASSIUM 4.3 mEq/L (3.5-5.1); SODIUM 139 mEq/L (136-145)
[2024-04-25 05:57] LABS: CALCIUM 8.4 mg/dL (8.7-10.4); CARBON DIOXIDE 24 mEq/L (21-32)
[2024-04-25 06:02] LABS: CREATININE 0.7 mg/dL (0.6-1.3); GLUCOSE 183 mg/dL (70-105); TRIGLYCERIDE 80 mg/dL (0-150); UREA NITROGEN BLOOD 9 mg/dL (9-23)
[2024-04-25 08:30] LABS: DIFFERENTIAL COMMENT 1
[2024-04-25] MEDS: NICARDIPINE 100 MG in SODIUM CHLORIDE 0.9% 60 ML IV PRN (13:04)
[2024-04-25] MEDS ORDERED: HYDROMORPHONE HCL/PF 1MG/ML INJ IV PRN (20:15)
[2024-04-25] MEDS ORDERED: DOCU250C14 PO (20:27)
[2024-04-25] MEDS: ATORVASTATIN CALCIUM 40MG TABLET PO SCH (21:56)
[2024-04-25] MEDS: DOCUSATE SODIUM 250MG CAPSULE PO SCH (21:56)
[2024-04-25] MEDS: FINASTERIDE 5MG TABLET PO SCH (21:56)
[2024-04-25] MEDS: TAMSULOSIN HCL 0.4MG SR CAPSULE PO SCH (21:57)
[2024-04-25 22:27] LABS: PLATELET ESTIMATE NORMAL
[2024-04-26] VITALS (53 sets, daily range): BP systolic 101–145; BP diastolic 60–90; PULSE 79–123; RESP 14–25; TEMP 36.78072–37.16964; O2SAT 94–98
[2024-04-26 06:00] LABS: BASOPHILS % 0.2 % (0.0-2.0); HEMATOCRIT. 42.8 % (42.0-52.0); HEMOGLOBIN. 14.6 g/dL (14.0-18.0); LYMPHOCYTES % 9.2 % (20.0-50.0); MEAN CORPUSCULAR HEMOGLOBIN 31.2 pg (28.0-32.0); MEAN CORPUSCULAR HGB CONC 34.2 g/dL (31.0-37.0); MEAN CORPUSCULAR VOLUME 91.4 fL (80.0-94.0); MEAN PLATELET VOLUME 7.5 fl (7.4-10.4); MONOCYTES % 5.5 % (2.0-8.0); NEUTROPHILS % 85.1 % (40.0-76.0); PLATELET 224 x1000/uL (130-400); RED BLOOD CELL COUNT 4.68 mill/uL (4.7-6.1); RED CELL DISTRIBUTION WIDTH 14.7 % (11.6-14.6)
[2024-04-26 06:16] LABS: CARBON DIOXIDE 25 mEq/L (21-32); CHLORIDE 107 mEq/L (98-107); SODIUM 139 mEq/L (136-145)
[2024-04-26 06:17] LABS: CALCIUM 8.7 mg/dL (8.7-10.4)
[2024-04-26 06:22] LABS: CREATININE 0.8 mg/dL (0.6-1.3); GLUCOSE 167 mg/dL (70-105); UREA NITROGEN BLOOD 13 mg/dL (9-23)
[2024-04-26] MEDS: CARVEDILOL 6.25 MG TABLET PO SCH ×2 (09:53→21:38)
[2024-04-26] MEDS: DIGOXIN 125MCG TABLET PO SCH (18:02)
[2024-04-27] VITALS (7 sets, daily range): BP systolic 128–157; BP diastolic 78–102; PULSE 63–81; RESP 15–20; TEMP 36.6696–37.00296; O2SAT 96–99
[2024-04-27 07:05] LABS: BASOPHILS % 0.3 % (0.0-2.0); EOSINOPHILS % 0.6 % (0.0-5.0); HEMATOCRIT. 44.3 % (42.0-52.0); HEMOGLOBIN. 14.7 g/dL (14.0-18.0); LYMPHOCYTES % 26.9 % (20.0-50.0); MEAN CORPUSCULAR HEMOGLOBIN 30.6 pg (28.0-32.0); MEAN CORPUSCULAR HGB CONC 33.3 g/dL (31.0-37.0); MEAN CORPUSCULAR VOLUME 91.9 fL (80.0-94.0); MEAN PLATELET VOLUME 7.1 fl (7.4-10.4); MONOCYTES % 8.5 % (2.0-8.0); NEUTROPHILS % 63.7 % (40.0-76.0); PLATELET 240 x1000/uL (130-400); RED BLOOD CELL COUNT 4.82 mill/uL (4.7-6.1); WHITE BLOOD COUNT 8.4 x1000/uL (4.5-11.0)
[2024-04-27 07:34] LABS: CALCIUM 8.5 mg/dL (8.7-10.4); CARBON DIOXIDE 26 mEq/L (21-32); CHLORIDE 107 mEq/L (98-107); POTASSIUM 3.7 mEq/L (3.5-5.1); SODIUM 138 mEq/L (136-145)
[2024-04-27 07:40] LABS: CREATININE 0.8 mg/dL (0.6-1.3); GLUCOSE 136 mg/dL (70-105); UREA NITROGEN BLOOD 13 mg/dL (9-23)
[2024-04-27] MEDS ORDERED: HYDROCODONE/ACETAMINOPHEN 5/325MG TABLET PO PRN (11:15)
[2024-04-27] MEDS: HYDROCODONE/ACETAMINOPHEN 5/325MG TABLET PO PRN (11:38)
[2024-04-27] MEDS: AMLODIPINE 5MG TABLET PO NR (12:34)
[2024-04-27] MEDS ORDERED: NALOXONE HCL 0.4MG/ML VIAL IV PRN (13:45)
[2024-04-27] MEDS ORDERED: BISACODYL 10MG SUPP PR PRN (17:45)
[2024-04-27] MEDS: LACTULOSE 20G/30ML UDC PO SCH (18:38)
[2024-04-27] MEDS: AMLODIPINE 2.5MG TABLET PO SCH (22:15)
[2024-04-28] VITALS (8 sets, daily range): BP systolic 123–147; BP diastolic 77–104; PULSE 78–93; RESP 13–23; TEMP 36.6696–37.00296; O2SAT 96–99
[2024-04-28 06:18] LABS: CALCIUM 8.8 mg/dL (8.7-10.4); CHLORIDE 106 mEq/L (98-107); POTASSIUM 3.7 mEq/L (3.5-5.1); SODIUM 140 mEq/L (136-145)
[2024-04-28 06:19] LABS: CARBON DIOXIDE 25 mEq/L (21-32)
[2024-04-28 06:24] LABS: BASOPHILS % 0.4 % (0.0-2.0); CREATININE 0.7 mg/dL (0.6-1.3); EOSINOPHILS % 1.5 % (0.0-5.0); GLUCOSE 136 mg/dL (70-105); HEMATOCRIT. 44.9 % (42.0-52.0); HEMOGLOBIN. 14.7 g/dL (14.0-18.0); LYMPHOCYTES % 27.1 % (20.0-50.0); MEAN CORPUSCULAR HEMOGLOBIN 29.9 pg (28.0-32.0); MEAN CORPUSCULAR HGB CONC 32.8 g/dL (31.0-37.0); MEAN CORPUSCULAR VOLUME 91.2 fL (80.0-94.0); MEAN PLATELET VOLUME 7.4 fl (7.4-10.4); MONOCYTES % 7.5 % (2.0-8.0); NEUTROPHILS % 63.5 % (40.0-76.0); PLATELET 240 x1000/uL (130-400); RED BLOOD CELL COUNT 4.92 mill/uL (4.7-6.1); RED CELL DISTRIBUTION WIDTH 14.3 % (11.6-14.6); UREA NITROGEN BLOOD 16 mg/dL (9-23); WHITE BLOOD COUNT 8.3 x1000/uL (4.5-11.0)
[2024-04-28] MEDS: AMLODIPINE 5MG TABLET PO SCH (09:00)
[2024-04-28] MEDS: NA PHOS,M-B/NA PHOS,DI-BA ENEMA 118ML PR NR (09:09)
[2024-04-28] MEDS ORDERED: HYDROMORPHONE HCL/PF 2MG/ML INJ IV PRN (15:32)
[2024-04-28] MEDS: POLYETHYLENE GLYCOL 3350 (17GM) 1 DOSE PACK PO SCH (16:17)
== END 2024-04-28 23:00 | DRG 447 ==
LOC: OR 08:01 → MICUSO 16:43 → 3WST 04-26 19:54
PROVIDERS: ADMIT Internal Medicine; ATTEND Internal Medicine
PROC: 0RG7071 Fusion of 2 to 7 Thoracic Vertebral Joints with Autologous Tissue Substitute, Posterior Approach, Posterior Column, Open Approach (ICD-10-PCS; principal; 2024-04-24)
PROC: 0RG4071 Fusion of Cervicothoracic Vertebral Joint with Autologous Tissue Substitute, Posterior Approach, Posterior Column, Open Approach (ICD-10-PCS; 2024-04-24)
PROC: 0RG2071 Fusion of 2 or more Cervical Vertebral Joints with Autologous Tissue Substitute, Posterior Approach, Posterior Column, Open Approach (ICD-10-PCS; 2024-04-24)
PROC: 00NW0ZZ Release Cervical Spinal Cord, Open Approach (ICD-10-PCS; 2024-04-24)
PROC: 00NX0ZZ Release Thoracic Spinal Cord, Open Approach (ICD-10-PCS; 2024-04-24)
PROC: 4A11X4G Monitoring of Peripheral Nervous Electrical Activity, Intraoperative, External Approach (ICD-10-PCS; 2024-04-24)
PROC: 0BH17EZ Insertion of Endotracheal Airway into Trachea, Via Natural or Artificial Opening (ICD-10-PCS; 2024-04-24)
PROC: 5A1935Z Respiratory Ventilation, Less than 24 Consecutive Hours (ICD-10-PCS; 2024-04-24)
DX: M48.04 Spinal stenosis, thoracic region (principal); G82.50 Quadriplegia, unspecified; J96.90 Respiratory failure, unspecified, unspecified whether with hypoxia or hypercapnia; I48.19 Other persistent atrial fibrillation; G99.2 Myelopathy in diseases classified elsewhere; G95.29 Other cord compression; M48.02 Spinal stenosis, cervical region; G47.33 Obstructive sleep apnea (adult) (pediatric); N40.0 Benign prostatic hyperplasia without lower urinary tract symptoms; I10 Essential (primary) hypertension; E78.5 Hyperlipidemia, unspecified; I49.3 Ventricular premature depolarization; I87.2 Venous insufficiency (chronic) (peripheral); F41.9 Anxiety disorder, unspecified; I87.8 Other specified disorders of veins; Z96.641 Presence of right artificial hip joint; G89.29 Other chronic pain; R26.81 Unsteadiness on feet; L30.9 Dermatitis, unspecified; S81.812A Laceration without foreign body, left lower leg, initial encounter; S81.811A Laceration without foreign body, right lower leg, initial encounter; X58.XXXA Exposure to other specified factors, initial encounter; E66.01 Morbid (severe) obesity due to excess calories; Z79.899 Other long term (current) drug therapy; Z82.49 Family history of ischemic heart disease and other diseases of the circulatory system; Z87.19 Personal history of other diseases of the digestive system; Z79.01 Long term (current) use of anticoagulants; Z88.1 Allergy status to other antibiotic agents; Z88.2 Allergy status to sulfonamides; Z88.5 Allergy status to narcotic agent; Z88.6 Allergy status to analgesic agent; Z68.37 Body mass index [BMI] 37.0-37.9, adult; Y93.89 Activity, other specified; Y92.89 Other specified places as the place of occurrence of the external cause; Y99.8 Other external cause status
CPT/HCPCS: 36415; 36600; 71045; 72040; 72141; 76000; 80048; 81003; 82375; 82805; 83735; 83880; 84478; 85025; 86850; 86900; 88304; 88311; 93005; 93306; 93970; 94003; 95925; 95926; 95928; 95929; 97110; 97116; 97162; 97166; 97530; 97535; A6261; J0330; J0690; J1100; J1171; J1580; J2470; J2704; J3010; J3490; J7050; J7121; L0172; C1713

== ENCOUNTER 2024-06-02 13:04 | Inpatient (IN) | payer MEDICARE, MEDICAID ==
[~2024-06-02] VITALS: Ht 185.4 cm; Wt 113.4 kg
[~2024-06-02 13:04] MED LIST changes: +DOCU250C14 PO; -LACTATED RINGERS 1,000 ML IV SCH
[2024-06-02 14:29] VITALS: BP 108/71; PULSE 91; RESP 20; TEMP 36.8072
[2024-06-02] MEDS ORDERED: HYDRALAZINE 20MG/ML VIAL IV PRN (18:00)
[2024-06-02] MEDS ORDERED: IPRATROPIUM/ALBUTEROL 0.5-3(2.5)MG/3ML NEB HHN PRN (18:00)
[2024-06-02] MEDS ORDERED: GUAIFENESIN 200MG/10ML SUGAR FREE UDC PO PRN (18:00)
[2024-06-02] MEDS ORDERED: DOCUSATE SODIUM 100MG CAPSULE PO PRN (18:00)
[2024-06-02] MEDS ORDERED: ONDANSETRON HCL 4MG/2ML INJ IV PRN (18:00)
[2024-06-02] MEDS ORDERED: HYDRALAZINE 10 MG in SODIUM CHLORIDE 0.9% 49.5 ML IV PRN (18:15)
[2024-06-02] MEDS ORDERED: FURO40TA5 PO (19:46)
[2024-06-02 20:00] VITALS: BP 107/68; PULSE 68; RESP 19; TEMP 36.78072; O2SAT 99
[2024-06-02] MEDS: DEXT 5%/0.45% NACL 1000ML 1,000 ML IV SCH (21:38)
[2024-06-02 22:10] LABS: BASOPHILS % 0.6 % (0.0-2.0); EOSINOPHILS % 2.8 % (0.0-5.0); HEMATOCRIT. 40.8 % (42.0-52.0); HEMOGLOBIN. 13.8 g/dL (14.0-18.0); MEAN CORPUSCULAR HEMOGLOBIN 30.8 pg (28.0-32.0); MEAN CORPUSCULAR HGB CONC 33.8 g/dL (31.0-37.0); MEAN CORPUSCULAR VOLUME 91.2 fL (80.0-94.0); MEAN PLATELET VOLUME 7.2 fl (7.4-10.4); MONOCYTES % 5.3 % (2.0-8.0); NEUTROPHILS % 50.3 % (40.0-76.0); PLATELET 368 x1000/uL (130-400); RED BLOOD CELL COUNT 4.47 mill/uL (4.7-6.1); RED CELL DISTRIBUTION WIDTH 14.5 % (11.6-14.6); WHITE BLOOD COUNT 6.8 x1000/uL (4.5-11.0)
[2024-06-02 22:19] LABS: PROTHROMBIN TIME 11.1 sec (9.6-11.0)
[2024-06-02 22:20] LABS: CHLORIDE 101 mEq/L (98-107); POTASSIUM 3.9 mEq/L (3.5-5.1); SODIUM 141 mEq/L (136-145)
[2024-06-02 22:21] LABS: CALCIUM 10.1 mg/dL (8.7-10.4); CARBON DIOXIDE 32 mEq/L (21-32)
[2024-06-02 22:26] LABS: GLUCOSE 128 mg/dL (70-105); UREA NITROGEN BLOOD 16 mg/dL (9-23)
[2024-06-03] VITALS (46 sets, daily range): BP systolic 81–134; BP diastolic 55–97; PULSE 55–86; RESP 13–31; TEMP 36.55848–36.89184; O2SAT 94–100
[2024-06-03] MEDS ORDERED: GENTAMICIN SULF 40MG/ML 2ML VIAL ONE (06:53)
[2024-06-03] MEDS ORDERED: THROMBIN (BOVINE) 5000 UNITS/VIAL TOP ONE (06:53)
[2024-06-03] MEDS ORDERED: BACITRACIN 14GM TUBE TOP ONE (06:53)
[2024-06-03] MEDS ORDERED: LIDOCAINE HCL/EPINEPHRINE 1%-EPI 1:100,000 20ML VIAL ONE (06:53)
[2024-06-03] MEDS ORDERED: ONDANSETRON HCL 4MG/2ML INJ ONE (07:14)
[2024-06-03] MEDS ORDERED: MIDAZOLAM HCL 2 MG/2 ML VIAL ONE (07:14)
[2024-06-03] MEDS ORDERED: ROCURONIUM BROMIDE 10MG/ML VIAL 5ML IV ONE (07:14)
[2024-06-03] MEDS ORDERED: SUCCINYLCHOLINE CHLORIDE 200MG/10ML IV ONE (07:14)
[2024-06-03] MEDS ORDERED: ETOMIDATE 2MG/ML 10ML VIAL IV ONE (07:14)
[2024-06-03] MEDS ORDERED: FENTANYL CITRATE/PF 50MCG/ML 2ML VIAL ONE (07:14)
[2024-06-03] MEDS ORDERED: DEXAMETHASONE 4MG/ML 1ML VIAL ONE (07:14)
[2024-06-03] MEDS ORDERED: SUGAMMADEX SODIUM 200MG/2ML VIAL IV ONE (08:26)
[2024-06-03] MEDS ORDERED: NICARDIPINE 100 MG in SODIUM CHLORIDE 0.9% 60 ML IV PRN (09:00)
[2024-06-03] MEDS ORDERED: NALOXONE HCL 0.4MG/ML VIAL IV PRN (09:00)
[2024-06-03] MEDS ORDERED: IPRATROPIUM/ALBUTEROL 0.5-3(2.5)MG/3ML NEB HHN PRN (09:30)
[2024-06-03] MEDS: HYDROCODONE/ACETAMINOPHEN 7.5/325MG TABLET PO PRN (09:56)
[2024-06-03] MEDS: MORPHINE SULFATE 4 MG/ML INJ (FOR IV/IM USE) IV PRN (09:57)
[2024-06-03] MEDS: DEXT 5%/LACTATED RINGERS 1,000 ML IV SCH (09:58)
[2024-06-03] MEDS: PANTOPRAZOLE SODIUM 40 MG/VIAL IV SCH (10:02)
[2024-06-03] MEDS: CEFAZOLIN 1000MG PREMIX 50 ML IV SCH (13:46)
[2024-06-03] MEDS ORDERED: CEFAZOLIN SODIUM 1000MG/VIAL IV SCH (14:00)
[2024-06-03] MEDS: ATORVASTATIN CALCIUM 40MG TABLET PO SCH (21:03)
[2024-06-03] MEDS: TAMSULOSIN HCL 0.4MG SR CAPSULE PO SCH (21:03)
[2024-06-03] MEDS ORDERED: POLYETHYLENE GLYCOL 3350 (17GM) 1 DOSE PACK PO PRN (22:00)
[2024-06-03] MEDS: DOCUSATE SODIUM 250MG CAPSULE PO NR (23:58)
[2024-06-04] VITALS (83 sets, daily range): BP systolic 95–149; BP diastolic 51–103; PULSE 50–96; RESP 12–29; TEMP 36.72516–36.89184; O2SAT 88–100
[2024-06-04 05:21] LABS: HEMATOCRIT 38.6 % (42.0-52.0); HEMOGLOBIN 12.8 g/dL (14.0-18.0); MEAN CORPUSCULAR HEMOGLOBIN 30.6 pg (28.0-32.0); MEAN CORPUSCULAR HGB CONC 33.3 g/dL (31.0-37.0); MEAN CORPUSCULAR VOLUME 91.8 fL (80.0-94.0); PLATELET 308 x1000/uL (130-400); RED CELL DISTRIBUTION WIDTH 14.4 % (11.6-14.6); WHITE BLOOD COUNT 7.7 x1000/uL (4.5-11.0)
[2024-06-04 05:24] LABS: CARBON DIOXIDE 28 mEq/L (21-32); CHLORIDE 107 mEq/L (98-107); POTASSIUM 3.1 mEq/L (3.5-5.1); SODIUM 141 mEq/L (136-145)
[2024-06-04 05:26] LABS: CALCIUM 9.1 mg/dL (8.7-10.4)
[2024-06-04 05:30] LABS: CREATININE 0.8 mg/dL (0.6-1.3); GLUCOSE 107 mg/dL (70-105)
[2024-06-04 05:31] LABS: CHOLESTEROL 115 mg/dL (<200); LDL CHOLESTEROL 61 mg/dL (5-100); TRIGLYCERIDE 90 mg/dL (0-150); UREA NITROGEN BLOOD 12 mg/dL (9-23)
[2024-06-04 05:33] LABS: HDL CHOLESTEROL 40 mg/dL (>55)
[2024-06-04] MEDS ORDERED: POTASSIUM CHLORIDE 40 MEQ in DEXT 5% WATER 230 ML IV ONE (07:45)
[2024-06-04] MEDS ORDERED: KCL 20MEQ/100ML PREMIX 100 ML IV SCH ×2 (08:00)
[2024-06-04] MEDS: FINASTERIDE 5MG TABLET PO SCH (09:52)
[2024-06-04] MEDS: KCL 20MEQ/100ML PREMIX 100 ML IV SCH (09:52)
[2024-06-04] MEDS: DOCUSATE SODIUM 250MG CAPSULE PO SCH (11:14)
[2024-06-05] VITALS (7 sets, daily range): BP systolic 114–140; BP diastolic 67–78; PULSE 65–86; RESP 18–20; TEMP 36.114–36.89184; O2SAT 95–100
[2024-06-05 07:07] LABS: CHLORIDE 105 mEq/L (98-107); POTASSIUM 3.6 mEq/L (3.5-5.1); SODIUM 140 mEq/L (136-145)
[2024-06-05 07:08] LABS: CARBON DIOXIDE 28 mEq/L (21-32)
[2024-06-05 07:09] LABS: CALCIUM 8.9 mg/dL (8.7-10.4)
[2024-06-05 07:13] LABS: CREATININE 0.7 mg/dL (0.6-1.3); GLUCOSE 104 mg/dL (70-105); UREA NITROGEN BLOOD 10 mg/dL (9-23)
[2024-06-05 07:22] LABS: HEMATOCRIT 38.4 % (42.0-52.0); MEAN CORPUSCULAR HEMOGLOBIN 30.7 pg (28.0-32.0); MEAN CORPUSCULAR HGB CONC 33.8 g/dL (31.0-37.0); PLATELET 287 x1000/uL (130-400); RED BLOOD CELL COUNT 4.22 mill/uL (4.7-6.1); RED CELL DISTRIBUTION WIDTH 14.4 % (11.6-14.6); WHITE BLOOD COUNT 5.6 x1000/uL (4.5-11.0)
[2024-06-05] MEDS: LACTULOSE 20G/30ML UDC PO NR (10:07)
[2024-06-06] VITALS: BP 142/80; PULSE 74; RESP 18; TEMP 36.72516; O2SAT 97
[2024-06-06 04:00] VITALS: BP 117/72; PULSE 69; RESP 16; TEMP 36.61404; O2SAT 98
[2024-06-06 11:04] VITALS: BP 134/82; PULSE 60; TEMP 98; O2SAT 99
== END 2024-06-06 12:20 | disposition home or self-care (01) | DRG 28 ==
LOC: 6EST 13:04 → MICUSO 06-03 09:10 → 7EST 06-05 00:19
PROVIDERS: ADMIT Internal Medicine; ATTEND Internal Medicine
PROC: 009U0ZZ Drainage of Spinal Canal, Open Approach (ICD-10-PCS; principal; 2024-06-03)
DX: G06.2 Extradural and subdural abscess, unspecified (principal); G82.50 Quadriplegia, unspecified; I62.1 Nontraumatic extradural hemorrhage; J96.01 Acute respiratory failure with hypoxia; M50.00 Cervical disc disorder with myelopathy, unspecified cervical region; I87.8 Other specified disorders of veins; M48.04 Spinal stenosis, thoracic region; M48.02 Spinal stenosis, cervical region; G47.33 Obstructive sleep apnea (adult) (pediatric); E66.9 Obesity, unspecified; I10 Essential (primary) hypertension; E78.5 Hyperlipidemia, unspecified; N40.0 Benign prostatic hyperplasia without lower urinary tract symptoms; I48.91 Unspecified atrial fibrillation; Z96.641 Presence of right artificial hip joint; Z79.01 Long term (current) use of anticoagulants; Z79.899 Other long term (current) drug therapy; Z88.1 Allergy status to other antibiotic agents; Z88.2 Allergy status to sulfonamides; Z88.5 Allergy status to narcotic agent; Z88.6 Allergy status to analgesic agent; Z98.1 Arthrodesis status; Z86.61 Personal history of infections of the central nervous system; Z68.33 Body mass index [BMI] 33.0-33.9, adult
CPT/HCPCS: 36415; 71045; 72040; 72141; 76000; 80048; 80061; 84443; 85025; 85027; 86850; 86900; 87070; 87075; 93005; 93970; 97116; 97162; 97166; 97535; J0330; J0690; J1100; J1580; J2250; J2270; J2405; J2470; J3010; J3480; J3490; J7121; L0172

== ENCOUNTER → 2025-02-13 | Outpatient (CLI) | payer MEDICARE, MEDICAID ==
[~2025-02-13] MED LIST changes: +FURO40TA5 PO; -TAMS-11 PO; +TAMS-54 PO
== END | disposition home or self-care (01) ==
LOC: RAD 08:59
PROVIDERS: ATTEND Neurological Surgery
DX: M47.814 Spondylosis without myelopathy or radiculopathy, thoracic region (principal); M43.23 Fusion of spine, cervicothoracic region; M85.89 Other specified disorders of bone density and structure, multiple sites; M54.2 Cervicalgia; R07.9 Chest pain, unspecified
CPT/HCPCS: 72052; 72070

== ENCOUNTER → 2025-05-29 | Outpatient (CLI) | payer MEDICARE, MEDICAID | END | disposition home or self-care (01) | LOC: MRI 10:00 | PROVIDERS: ATTEND Neurological Surgery | DX: M47.812 Spondylosis without myelopathy or radiculopathy, cervical region (principal); G95.89 Other specified diseases of spinal cord; M48.02 Spinal stenosis, cervical region; M43.23 Fusion of spine, cervicothoracic region; M47.814 Spondylosis without myelopathy or radiculopathy, thoracic region; M48.04 Spinal stenosis, thoracic region; M51.26 Other intervertebral disc displacement, lumbar region; Z98.1 Arthrodesis status | CPT/HCPCS: 72141; 72146 ==